=== PATIENT | female | born 1955 | race Caucasian/White ===

== ENCOUNTER 2019-07-05 19:42 | Emergency (ER) | payer SELFPAY ==
--- NOTE | 2019-07-05 21:27 | ER ---
Nurse's Notes [facility] Name: Sommer Robertson Age: 64 yrs Sex: Female : 1955 Arrival Date: 07/05/2019 Time: 19:44 Bed 25 Private MD: Diagnosis: Presentation: 07/05 19:55 Presenting complaint: Patient states: "I got home today and I ate some dinner and I aj1 started having pains in my left arm, like in my wrist and it looked swollen there. I felt really tired, I've been like that for 2 weeks or so. I don't remember hitting my wrist or anything I took my blood pressure at home and it was 190/90." Patient also reports shortness of breath. Transition of care: patient was not received from another setting of care. Onset of symptoms was 2018. Risk Assessment: Do you want to hurt yourself or someone else? Patient reports no desire to harm self or others. Initial Sepsis Screen: Does the patient meet any 2 criteria? No. Patient's initial sepsis screen is negative. Does the patient have a suspected source of infection? No. Patient's initial sepsis screen is negative. Care prior to arrival: None. 19:55 Method Of Arrival: Ambulatory aj1 19:55 Acuity: MARIAA 3 aj1 Triage Assessment: 19:59 General: Appears in no apparent distress. comfortable, Behavior is calm, cooperative, aj1 appropriate for age. Pain: Denies pain. Neuro: Level of Consciousness is awake, alert, obeys commands. Cardiovascular: Patient's skin is warm and dry. Respiratory: Airway is patent Respiratory effort is even, unlabored, Respiratory pattern is regular, symmetrical. Historical: - Allergies: 19:59 Vicodin; aj1 - Home Meds: 19:59 Lisinopril Oral [Active]; Coreg Oral [Active]; "allergy medicine" [Active]; aj1 - PMHx: 19:59 Hypertension; aj1 - PSHx: 19:59 Hysterectomy; foot surgery; aj1 - Immunization history:: Flu vaccine is up to date. - Social history:: Smoking status: Patient/guardian denies using tobacco. - Ebola Screening: : Patient denies travel to an Ebola-affected area in the 21 days before illness onset. Vital Signs: 19:59 BP 146 / 89; Pulse 70; Resp 18; Temp 98.2; Pulse Ox 98% on R/A; Weight 63.5 kg (R); aj1 Height 5 ft. 4 in. (162.56 cm) (R); Pain 0/10; 19:59 Body Mass Index 24.03 (63.50 kg, 162.56 cm) aj1 ED Course: 19:44 Patient arrived in ED. ds1 19:58 Triage completed. aj1 19:59 Arm band placed on Patient placed in waiting room, Patient notified of wait time. aj1 21:23 Andrew Godinez MD is Attending Physician. tw4 Administered Medications: No medications were administered Outcome: 21:26 Patient left the ED. aa1 Signatures: Estephanie Michaels RN RN aj1 Ivelisse Vo RN RN aa1 Yara Garcia ds1 Andrew Godinez MD MD tw4
[2019-07-06 00:55] VITALS: BP 146/89; TEMP 98.2; O2SAT 98
== END 2019-07-05 21:26 | disposition left against medical advice (07) ==
LOC: ER 19:42
DX: Z53.21 Procedure and treatment not carried out due to patient leaving prior to being seen by health care provider (principal)
CPT/HCPCS: 99281

== ENCOUNTER 2019-09-09 14:57 | Emergency (ER) | payer OTHER ==
[2019-09-09 16:58] LABS: Urine Bacteria <20 /HPF (<20); Urine Culture Reflex Order NOT NEEDED; Urine RBC <5 /HPF (NONE SEEN)
[2019-09-09 17:38] LABS: ALT/SGPT 28 U/L (12-78); AST/SGOT 26 U/L (15-37); Absolute Lymphocytes (CBC) 1.5 K/uL (0.7-4.9); Albumin 3.8 g/dL (3.4-5.0); Alkaline Phosphatase 56 U/L (45-117); Amylase Level 82 U/L (25-115); BUN Blood Urea Nitrogen 11 mg/dL (7-18); Basophils % 0.2 % (0-1.3); Bicarbonate 28 mmol/L (21-32); Bilirubin Direct 0.2 mg/dL (0-0.2); Bilirubin Total 0.7 mg/dL (0.2-1.0); CKMB Creatine Kinase MB < 1.0 ng/mL (0.3-3.6); Creatine Phosphokinase 35 U/L (26-192); Glucose Level 97 mg/dL (74-106); Hematocrit 38.8 % (36.0-45.0); Lipase 468 U/L (73-393); MPV 9.3 fL (7.6-11.3); Potassium 3.6 mmol/L (3.5-5.1); Protein, Total 7.4 g/dL (6.4-8.2); Protime INR 1.02; RBC Red Blood Cell Count 4.22 M/uL (3.86-4.86); Sodium Level 129 mmol/L (136-145); Troponin (Emerg Dept Use Only) < 0.02 ng/mL (0.0-0.045)
[2019-09-09] MEDS ORDERED: NA CHLORIDE 0.9% 1,000 ML ONE (17:52)
[2019-09-09 20:18] LABS: BUN Blood Urea Nitrogen 10 mg/dL (7-18); Bicarbonate 26 mmol/L (21-32); Glucose Level 91 mg/dL (74-106); Potassium 3.5 mmol/L (3.5-5.1); Sodium Level 137 mmol/L (136-145)
--- NOTE | 2019-09-09 20:34 | EDPHYS ---
Physician Documentation [facility] Name: Sommer Robertson Age: 64 yrs Sex: Female : 1955 Arrival Date: 09/09/2019 Time: 14:59 Bed 2 Private MD: Bob Wiggins R ED Physician Mason Israel HPI: 09/09 17:56 This 64 yrs old Female presents to ER via Ambulatory with complaints of kdr Abnormal Lab Results. 17:56 The patient was sent to the ED for low sodium and general malaise that has been ongoing kdr for the past few weeks. She has been treated for UTI and non-specific infection since mid July since she returned from a trip to [facility]. Onset: The symptoms/episode began/occurred gradually, Unknown exact onset - she has been drinking a lot of free water in the last few weeks due to her generalized malaise and UTI.. Severity of symptoms: At their worst the symptoms were very mild in the emergency department the symptoms are unchanged. The patient has not experienced similar symptoms in the past. The patient has been recently seen by a physician: the patient's primary care provider. Historical: - Allergies: 15:22 Vicodin; hb - Home Meds: 15:22 "allergy medicine" [Active]; lisinopril Oral [Active]; Coreg Oral [Active]; hb - PMHx: 15:22 Hypertension; hb - PSHx: 15:22 Hysterectomy; foot surgery; hb - Immunization history:: Adult Immunizations up to date. - Coronavirus screen:: The patient has NOT traveled to [place], [place], or [place] in the past 14 days. The patient has NOT had contact with known/suspected case of Coronavirus? Proceed with normal triage procedures. - Social history:: Smoking status: Patient denies any tobacco usage or history of. - Ebola Screening: : No symptoms or risks identified at this time. ROS: 17:56 Constitutional: Negative for fever, chills, and weight loss, Eyes: Negative for injury, kdr pain, redness, and discharge, ENT: Negative for injury, pain, and discharge, Neck: Negative for injury, pain, and swelling, Cardiovascular: Negative for chest pain, palpitations, and edema, Respiratory: Negative for shortness of breath, cough, wheezing, and pleuritic chest pain, Abdomen/GI: Negative for abdominal pain, nausea, vomiting, diarrhea, and constipation, Back: Negative for injury and pain, : Negative for injury, discharge, and swelling - she has had some hematuria but that has improved with abx MS/Extremity: Negative for injury and deformity, Skin: Negative for injury, rash, and discoloration, Neuro: Negative for headache, weakness, numbness, tingling, and seizure activity. Psych: Negative for depression, anxiety, suicide ideation, homicidal ideation, and hallucinations, Allergy/Immunology: Negative for hives, rash, and allergies, Endocrine: Negative for neck swelling, polydipsia, polyuria, polyphagia, and marked weight changes, Hematologic/Lymphatic: Negative for swollen nodes, abnormal bleeding, and unusual bruising. Exam: 17:56 Constitutional: This is a well developed, well nourished patient who is awake, alert, kdr and in no acute distress. Head/Face: Normocephalic, atraumatic. Eyes: Pupils equal round and reactive to light, extra-ocular motions intact. Lids and lashes normal. Conjunctiva and sclera are non-icteric and not injected. Cornea within normal limits. Periorbital areas with no swelling, redness, or edema. Neck: Trachea midline, no thyromegaly or masses palpated, and no cervical lymphadenopathy. Supple, full range of motion without nuchal rigidity, or vertebral point tenderness. No Meningismus. Chest/axilla: Normal chest wall appearance and motion. Nontender with no deformity. No lesions are appreciated. Cardiovascular: Regular rate and rhythm with a normal S1 and S2. No gallops, murmurs, or rubs. Normal PMI, no JVD. No pulse deficits. Respiratory: Lungs have equal breath sounds bilaterally, clear to auscultation and percussion. No rales, rhonchi or wheezes noted. No increased work of breathing, no retractions or nasal flaring. Abdomen/GI: Soft, non-tender, with normal bowel sounds. No distension or tympany. No guarding or rebound. No evidence of tenderness throughout. Back: No spinal tenderness. No costovertebral tenderness. Full range of motion. Skin: Warm, dry with normal turgor. Normal color with no rashes, no lesions, and no evidence of cellulitis. MS/ Extremity: Pulses equal, no cyanosis. Neurovascular intact. Full, normal range of motion. Neuro: Awake and alert, GCS 15, oriented to person, place, time, and situation. Cranial nerves II-XII grossly intact. Motor strength 5/5 in all extremities. Sensory grossly intact. Cerebellar exam normal. Normal gait. Psych: Awake, alert, with orientation to person, place and time. Behavior, mood, and affect are within normal limits. Vital Signs: 15:22 BP 158 / 79; Pulse 62; Resp 16; Temp 98.9(TE); Pulse Ox 100% on R/A; Weight 63.5 kg; hb Height 5 ft. 4 in. (162.56 cm); Pain 0/10; 16:45 BP 188 / 91; Pulse 74; Resp 17 S; Pulse Ox 100% on R/A; jl7 17:12 BP 176 / 86; Pulse 72; Resp 16 S; Pulse Ox 99% on R/A; jl7 18:17 BP 166 / 92; Pulse 73; Resp 14 S; Pulse Ox 100% on R/A; jl7 19:44 BP 157 / 78; Pulse 70; Resp 14; Pulse Ox 100% on R/A; rv 20:45 BP 132 / 75; Pulse 63; Resp 11; Pulse Ox 98% on R/A; vc 15:22 Body Mass Index 24.03 (63.50 kg, 162.56 cm) hb MDM: 20:32 Data reviewed: vital signs. Data interpreted: Pulse oximetry: on room air is 100 %. pm1 Interpretation: normal. Counseling: I had a detailed discussion with the patient and/or guardian regarding: the historical points, exam findings, and any diagnostic results supporting the discharge/admit diagnosis, lab results, the need for outpatient follow up, to return to the emergency department if symptoms worsen or persist or if there are any questions or concerns that arise at home. 20:33 Patient medically screened. pm1 09/09 16:19 Order name: Amylase, Serum; Complete Time: 17:46 [facility] 09/09 16:19 Order name: Basic Metabolic Panel; Complete Time: 17:45 [facility] 09/09 16:19 Order name: Blood Culture Adult (2) [facility] 09/09 16:19 Order name: CBC with Diff; Complete Time: 17:46 [facility] 09/09 16:19 Order name: Ckmb; Complete Time: 17:46 [facility] 09/09 16:19 Order name: CPK; Complete Time: 17:46 [facility] 09/09 16:19 Order name: Lactate; Complete Time: 17:46 [facility] 09/09 16:19 Order name: LFT's; Complete Time: 17:45 [facility] 09/09 16:19 Order name: Lipase; Complete Time: 17:45 [facility] 09/09 16:19 Order name: Procalcitonin; Complete Time: 18:28 [facility] 09/09 16:19 Order name: Protime (+inr); Complete Time: 17:46 [facility] 09/09 16:19 Order name: Ptt, Activated; Complete Time: 17:46 [facility] 09/09 16:19 Order name: Troponin (emerg Dept Use Only); Complete Time: 17: [facility] 09/09 16:19 Order name: Urine Microscopic Only; Complete Time: 17:46 [facility] 09/09 16:19 Order name: Accucheck; Complete Time: 16:42 [facility] 09/09 16:19 Order name: Cardiac monitoring; Complete Time: 16:42 [facility] 09/09 16:19 Order name: EKG - Nurse/Tech; Complete Time: 17:09 [facility] 09/09 16:19 Order name: IV Saline Lock - Large Bore; Complete Time: 17:09 [facility] 09/09 16:19 Order name: Labs collected and sent; Complete Time: 17: [facility] 09/09 16:19 Order name: O2 Per Protocol; Complete Time: 16:36 [facility] 09/09 16:19 Order name: O2 Sat Monitoring; Complete Time: 16:36 [facility] 09/09 16:19 Order name: Urine Dipstick-Ancillary (obtain specimen); Complete Time: 16:36 [facility] 09/09 16:54 Order name: Urine Dipstick--Ancillary (enter results) ss 09/09 17:16 Order name: Glucose, Ancillary Testing; Complete Time: 17:46 EDMS 09/09 17:47 Order name: Chem 7: draw 30 minutes after bolus; Complete Time: 20:21 kdr EC:10 Rate is 69 beats/min. Rhythm is regular, Normal Sinus Rhythm with No ectopy. QRS [place] kdr is Normal. [place] interval is normal. QRS interval is normal. QT interval is normal. Clinical impression: Normal ECG. Administered Medications: 17:55 Drug: NS 0.9% 1000 ml Route: IV; Rate: 1 bolus; Site: left forearm; jl7 18:54 Follow up: IV Status: Completed infusion; IV Intake: 1000ml jl7 Disposition: 09/09/19 20:33 Discharged to Home. Impression: Hyponatremia. - Condition is Stable. - Discharge Instructions: Hyponatremia. - Medication Reconciliation Form, Thank You Letter, Antibiotic Education, Prescription Opioid Use form. - Follow up: Emergency Department; When: As needed; Reason: Worsening of condition. Follow up: Private Physician; When: 2 - 3 days; Reason: Recheck today's complaints, Continuance of care, Re-evaluation by your physician. - Problem is new. - Symptoms have improved. Addendum: 09/10/2019 21:16 Co-signature as Attending Physician, Mason Israel MD I agree with the assessment and k dr plan of care. Signatures: Dispatcher [employer] [facility] Mason Israel MD MD [facility] Juan Goins, MACHINE REPAIRER MAINTENANCE MACHINE REPAIRER MAINTENANCE pm1 Stephanie Franklin RN RN Bashir España RN RN jl7 Nesha Diaz RN RN vc Corrections: (The following items were deleted from the chart) 09/09 16:50 16:20 Chest Single View+RAD.RAD.BRZ ordered. [facility] 20:44 20:33 09/09/2019 20:33 Discharged to Home. Impression: Hyponatremia. Condition is vc Stable. Forms are Medication Reconciliation Form, Thank You Letter, Antibiotic Education, Prescription Opioid Use. Follow up: Emergency Department; When: As needed; Reason: Worsening of condition. Follow up: Private Physician; When: 2 - 3 days; Reason: Recheck today's complaints, Continuance of care, Re-evaluation by your physician. Problem is new. Symptoms have improved. pm1
--- NOTE | 2019-09-09 20:34 | ER ---
Nurse's Notes [facility] Name: Sommer Robertson Age: 64 yrs Sex: Female : 1955 Arrival Date: 09/09/2019 Time: 14:59 Bed 2 Private MD: Bob Wiggins R Diagnosis: Hyponatremia Presentation: 09/09 15:20 Presenting complaint: Lethargy and intermittent fever x 2-3 weeks. Completed ABX for hb UTI 3 days ago. Had outpatient labs done yesterday, instructed by PCP to come to ED for CL 91, NA 130. Transition of care: patient was not received from another setting of care. Onset of symptoms was August 2019. Risk Assessment: Do you want to hurt yourself or someone else? Patient reports no desire to harm self or others. Initial Sepsis Screen: Does the patient meet any 2 criteria? No. Patient's initial sepsis screen is negative. Does the patient have a suspected source of infection? No. Patient's initial sepsis screen is negative. Care prior to arrival: Medication(s) given: DayQuil 2 hrs PHYSICAL THERAPIST AIDE. 15:20 Method Of Arrival: Ambulatory hb 15:20 Acuity: MARIAA 3 hb Historical: - Allergies: 15:22 Vicodin; hb - Home Meds: 15:22 "allergy medicine" [Active]; lisinopril Oral [Active]; Coreg Oral [Active]; hb - PMHx: 15:22 Hypertension; hb - PSHx: 15:22 Hysterectomy; foot surgery; hb - Immunization history:: Adult Immunizations up to date. - Coronavirus screen:: The patient has NOT traveled to [place], [place], or [place] in the past 14 days. The patient has NOT had contact with known/suspected case of Coronavirus? Proceed with normal triage procedures. - Social history:: Smoking status: Patient denies any tobacco usage or history of. - Ebola Screening: : No symptoms or risks identified at this time. Screenin:11 Abuse screen: Denies threats or abuse. Denies injuries from another. Nutritional jl7 screening: No deficits noted. Tuberculosis screening: No symptoms or risk factors identified. Fall Risk IV access (20 points). Total Brantley Fall Scale indicates No Risk (0-24 pts). Assessment: 16:30 General: Appears in no apparent distress. uncomfortable, Behavior is calm, cooperative, jl7 appropriate for age. Pain: Denies pain. Neuro: Level of Consciousness is awake, alert, obeys commands, Oriented to person, place, time, situation. Cardiovascular: Patient's skin is warm and dry. Respiratory: Airway is patent Respiratory effort is even, unlabored, Respiratory pattern is regular, symmetrical. GI: Stools are reported to be loose. : Reports being treated for UTI. Derm: Skin is pink, warm \\T\\ dry. 17:30 Reassessment: Patient appears in no apparent distress at this time. No changes from jl7 previously documented assessment. Patient and/or family updated on plan of care and expected duration. Pain level reassessed. Patient is alert, oriented x 3, equal unlabored respirations, skin warm/dry/pink. 19:15 General: Appears in no apparent distress. uncomfortable, Behavior is calm, cooperative, vc appropriate for age, drowsy. Pain: Denies pain. Neuro: Level of Consciousness is awake, alert, obeys commands, Oriented to person, place, time, situation. Cardiovascular: Patient's skin is warm and dry. Respiratory: Airway is patent Respiratory effort is even, unlabored, Respiratory pattern is regular, symmetrical. GI: Stools are reported to be loose. :. EENT: No signs and/or symptoms were reported regarding the EENT system. Derm: Skin is pink, warm \\T\\ dry. Musculoskeletal: Circulation, motion, and sensation intact. Range of motion: intact in all extremities. 19:45 Reassessment: Patient appears in no apparent distress at this time. Patient is alert, rv oriented x 3, equal unlabored respirations, skin warm/dry/pink. CONDITION IS UNCHANGED PER PATIENT. Vital Signs: 15:22 BP 158 / 79; Pulse 62; Resp 16; Temp 98.9(TE); Pulse Ox 100% on R/A; Weight 63.5 kg; hb Height 5 ft. 4 in. (162.56 cm); Pain 0/10; 16:45 BP 188 / 91; Pulse 74; Resp 17 S; Pulse Ox 100% on R/A; jl7 17:12 BP 176 / 86; Pulse 72; Resp 16 S; Pulse Ox 99% on R/A; jl7 18:17 BP 166 / 92; Pulse 73; Resp 14 S; Pulse Ox 100% on R/A; jl7 19:44 BP 157 / 78; Pulse 70; Resp 14; Pulse Ox 100% on R/A; rv 20:45 BP 132 / 75; Pulse 63; Resp 11; Pulse Ox 98% on R/A; vc 15:22 Body Mass Index 24.03 (63.50 kg, 162.56 cm) hb ED Course: 14:59 Patient arrived in ED. ag5 14:59 Bob Wiggins MD is Private Physician. ag5 15:01 Mason Israel MD is Attending Physician. kdr 15:22 Triage completed. hb 15:22 Arm band placed on. hb 15:46 Bashir España, BLAKE is Primary Nurse. jl7 16:30 Patient has correct armband on for positive identification. Placed in gown. Bed in low jl7 position. Call light in reach. Side rails up X2. nurse monitoring on. Pulse ox on. NIBP on. Warm blanket given. 16:43 Urine collected: clean catch specimen, clear, ryne colored. jb1 17:00 Inserted saline lock: 22 gauge in left forearm, using aseptic technique. Blood jl7 collected. 17:00 Initial lab(s) drawn, by me, sent to lab. First set of blood cultures drawn by me. jl7 18:15 Second set of blood cultures drawn Missed attempt to draw second set of blood cultures jl7 from right hand, pt refused second set of blood cultures at this time, lab notified. 19:43 Juan Goins NP is PHCP. pm1 20:42 No provider procedures requiring assistance completed. IV discontinued, intact, vc bleeding controlled, No redness/swelling at site. Pressure dressing applied. Administered Medications: 17:55 Drug: NS 0.9% 1000 ml Route: IV; Rate: 1 bolus; Site: left forearm; jl7 18:54 Follow up: IV Status: Completed infusion; IV Intake: 1000ml jl7 Intake: 18:54 IV: 1000ml; Total: 1000ml. jl7 Outcome: 20:33 Discharge ordered by . pm1 20:44 Patient left the ED. vc 20:46 Discharged to home ambulatory, with significant other. vc 20:46 Condition: good 20:46 Discharge instructions given to patient, Instructed on discharge instructions, follow up and referral plans. Demonstrated understanding of instructions, follow-up care. Signatures: Lyle Rodriguez jb1 Mason Israel MD MD kdr Juan Goins, KENNEDI ACQUISITIONS ANALYST pm1 Stephanie Franklin, RN RN hb Bashir España RN RN jl7 Al Meza RN RN Jitendra Dumont ag5 Nesha Diaz RN RN vc
[2019-09-09 20:50] VITALS: TEMP 98.9
[2019-09-09 20:54] VITALS: O2SAT 100
[2019-09-09 20:56] VITALS: BP 157/78
[2019-09-09 22:08] LABS: Urine Blood 1+ (NEG); Urine Glucose NEGATIVE (NEG); Urine Protein NEGATIVE (NEG)
--- NOTE | 2019-09-10 12:00 | EKG ---
Test Date: 2019-09-09 Test Time: 17:09:49 Daycare Manager: GENNY MEASUREMENT RESULTS: Intervals: Rate: 69 HI: 156 QRSD: 96 QT: 400 QTc: 428 [place]: P: 76 HI: 156 QRS: 48 T: 58 INTERPRETIVE STATEMENTS: Normal sinus rhythm Normal ECG Compared to ECG 02/11/2011 14:25:47 No significant changes Electronically Signed On 09-10-19 11:59:38 EDITING INTERN by Filemon Gonzales
== END 2019-09-09 20:44 | disposition home or self-care (01) ==
LOC: ER 14:57
DX: E87.1 Hypo-osmolality and hyponatremia (principal); I10 Essential (primary) hypertension; Z88.6 Allergy status to analgesic agent
CPT/HCPCS: 93005; 87040; 85025; 80048 ×2; 36415; 82150; 82550; 85610; 82947; 80076; 83605; 85730; 84484; 82553; 83690; 84145; 96360; 99284; J7030; 81003; 81015

== ENCOUNTER 2020-09-02 20:17 | Observation (INO) | payer OTHER ==
--- OUTSIDE RECORDS SUMMARY | 2020-09-02 20:20 | XMS REPORT | Summary of Care ---
:1955 Author Organization [facility] Address [address] [place] [id number] Care Team Providers Name Role Phone Juana Wiggins MD Primary Care Provider [phone] Reason for Visit Reason Comments Rx Concern/Question Encounter Details Date Type Department Care Team Description 07/22/2020 Telephone [facility] Callum Palomares, Rx Con cern/Question Neurology-Christopher HESTER [address] [place] [address]. [address] [place] [address] [id number] Allergies No Known Allergiesdocumented as of this encounter (statuses as of 07/30/2020) Medications Medication Sig Dispensed Refills Start Date End Date Status albuterol 90 0 09/03/2019 Active mcg/actuation inhaler amLODIPine 5 mg tablet 0 09/06/2019 Active azithromycin 250 mg 0 08/21/2019 Active tablet carvediloL 25 mg tablet 0 09/01/2019 Active cefdinir 300 mg capsule 0 09/01/2019 Active lisinopril 40 mg tablet 0 09/06/2019 Active montelukast 10 mg 0 09/01/2019 A ctive tablet atorvastatin 40 mg TAKE 1 TABLET BY 0 05/31/2020 Active tablet MOUTH EVERY DAY AT NIGHT documented as of this encounter (statuses as of 07/30/2020) Active Problems Not on filedocumented as of this encounter (statuses as of 07/30/2020) Social History Tobacco Use Types Packs/Day Years Used Date Never Assessed Sex Assigned at Date Recorded Not on file COVID-19 Exposure Response Date Recorded In the last month, have you been in contact with No / Unsure 07/19/2020 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 documented as of this encounter Last Filed Vital Signs Not on filedocumented in this encounter Miscellaneous Notes Telephone Encounter - Callum Palomares MD - 07/30/2020 9:16 AM CSTThe medication that we had talked about was rivastigmine. I thought that it had already been ordered. It is a 4.6 mg transdermal dosage. elephone Encounter - Jennifer Orozco LVN - 07/23/2020 9:12 AM CSTDr. Larry, Patient's called and wanted to check the status of the medication being called in that was discussed at last office visit. Please review and advise. MILL OPERATOR Telephone Encounter - Jennifer Orozco LVN - 07/23/2020 9:09 AM CSTAttempted to contact patient. Left VM with direct clinic number. Left message I was sending message to doctor and would let them know when I hear back from doctor. MILL OPERATOR Telephone Encounter - Ariane Renteria - 07/22/2020 3:43 PM CSTDoris Robertson is a 65 year old female Lyle is calling to check status of a prescription that was supposed to be called in as discussed during last office visit on 07/19. States the rx was not called in and would like a call back at [phone] (home) to be advised. Thank you! MILL OPERATOR documented in this encounter Plan of Treatment Date Type Specialty Care Team Description 10/18/2020 Office Visit Neurology Callum Palomares MD [address] [place], [place] [address]d. [place] [phone] Health Maintenance Due Date Last Done Comments HEPATITIS C (HCV) SCREEN 1955 DTaP,Tdap,and Td Vaccines (1 - 02/13/1975 Tdap) PAP SMEAR 02/13/1977 Breast Cancer Screening 1996 (MAMMOGRAM) COLON CANCER SCREENING ANNUAL 02/13/2006 FIT/FOBT COLON CANCER SCREENING FIT DNA 02/13/2006 EVERY 3 YEARS COLON CANCER SCREENING 02/13/2006 SIGMOIDOSCOPY EVERY 5 YEARS COLONOSCOPY 02/13/2006 Colorectal Cancer Screening 02/13/2006 Zoster Recombinant Vaccine 02/13/2006 (SHINGRIX) (1 of 2) INFLUENZA VACCINE (#1) 2020 Depression Screening 07/19/2021 07/19/2020 PNEUMOCOCCAL 0-64 YEARS COMBINED Aged Out No longer eligible based on SERIES patient's age to complete this topic documented as of this encounter Results Not on filedocumented in this encounter Insurance Payer Benefit Plan / Group Subscriber ID Effective Dates Phone Address Type AETNA AETNA HMO [id number] 2019-Present HM O documented as of this encounter
--- OUTSIDE RECORDS SUMMARY | 2020-09-02 20:20 | XMS REPORT | Summary of Care ---
:1955 Author Organization [address] [address] Care Team Providers Name Role Phone Juana Wiggins MD Primary Care Provider [phone] Reason for Visit Reason Comments Refill Request Encounter Details Date Type Department Care Team Description 08/17/2020 Refill [facility] Callum Palomares MD Refill Request Neurology-[address] [place] [address] [address] [place] [address] [facility] [phone] Allergies No Known Allergiesdocumented as of this encounter (statuses as of 08/19/2020) Medications Medication Sig Dispensed Refills Start Date [...] Active tablet MOUTH EVERY DAY AT NIGHT rivastigmine 4.6 mg/24 Apply 1 Patch to 30 Patch 1 07/24/2020 Active hr patchIndications: skin daily. 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 documented as of this encounter Last Filed Vital Signs Not on filedocumented in this encounter Plan of Treatment Date Type Specialty Care Team Description 10/18/2020 Office Visit Neurology Callum Palomares MD [address] [place], [place] [address]d. [place] [phone] Health Maintenance Due Date Last Done Comments HEPATITIS C (HCV) SCREEN 1955 DTaP,Tdap,and Td Vaccines ( - 02/13/1975 Tdap) PAP SMEAR 02/13/1977 Breast [...] Results Not on filedocumented in this encounter Visit Diagnoses Diagnosis Early onset Alzheimer's dementia without behavioral disturbance documented in this encounter Insurance Payer Benefit Plan / Group Subscriber ID Effective Dates Phone Address Type AETNA AETNA HMO [id number] 2019-Present HM O documented as of this encounter
--- OUTSIDE RECORDS SUMMARY | 2020-09-02 20:20 | XMS REPORT | Summary of Care ---
:1955 Author Organization [facility] Address [address] [place] [address] Care Team Providers Name Role Phone Juana Wiggins MD Primary Care Provider [phone] Reason for Visit Reason Comments Follow-up for MRI results, cognitive i mpairement Encounter Details Date Type Department Care Team Description 07/19/2020 Office Visit [facility] Callum Palomares Early onset Neurology-Christopher Daniel MD Alzheimer's dementia [address] [place] [address] [place], [place] disturbance ([place] [address] Dx) [phone] Allergies No Known Allergiesdocumented as of this encounter (statuses as of 07/26/2020) Medications Medication Sig Dispensed Refills Start Date [...] as of this encounter (statuses as of 07/26/2020) Active Problems Not on filedocumented as of this encounter (statuses as of 07/26/2020) Social History Tobacco Use Types Packs/Day Years Used Date Never Assessed Sex Assigned at Date Recorded Not on file COVID-19 Exposure Response Date Recorded In the last month, have you been in contact with No / Unsure 07/19/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 documented as of this encounter Last Filed Vital Signs Vital Sign Reading Time Taken Comments Blood Pressure 122/71 07/19/2020 3:24 PM COCONUT CANDY MAKER Pulse 67 07/19/2020 3:24 PM COCONUT CANDY MAKER Temperature - - Respiratory Rate - - Oxygen Saturation - - Inhaled Oxygen Concentration - - Weight 61.1 kg (134 lb 12.8 oz) 07/19/2020 3:24 PM COCONUT CANDY MAKER Height 162.6 cm (5' 4") 07/19/2020 3:24 PM COCONUT CANDY MAKER Body Mass Index 23.14 07/19/2020 3:24 PM COCONUT CANDY MAKER documented in this encounter Progress Notes Callum Palomares MD - 07/19/2020 3:00 PM CST HISTORY OF PRESENT ILLNESS: Doris Robertson is a 65 year old female. Chief complaint: Suspected AD followup. History: The patient did have the MRI done from back in December. I had previously seen her in September. She is here today with her , and cognitively she has not worsened, but unfortunately she also has not gotten any better. The study did reveal in my opinion some fairly significant atrophy presentfor someone who is only 65 years old. There was no evidence of hydrocephalus. Discussion did occur about what possible symptomatic treatment options might be available. When she had the MOCA back in September, there was significant changes in the score. PMH: has no past medical history on file. Current Outpatient Medications: rivastigmine 4.6 mg/24 hr patch, Apply 1 Patch to skin daily., Disp: 30 Patch, Rfl: 1 atorvastatin 40 mg tablet, TAKE 1 TABLET BY MOUTH EVERY DAY AT NIGHT, Disp: , Rfl: albuterol 90 mcg/actuation inhaler, , Disp: , Rfl: amLODIPine 5 mg tablet, , Disp: , Rfl: carvediloL 25 mg tablet, , Disp: , Rfl: cefdinir 300 mg capsule, , Disp: , Rfl: lisinopril 40 mg tablet, , Disp: , Rfl: montelukast 10 mg tablet, , Disp: , Rfl: azithromycin 250 mg tablet, , Disp: , Rfl: No family history on file. Social History Socioeconomic History Marital status: Spouse name: Not on file Number of children: Not on file Years of education: Not on file Highest education level: Not on file Occupational History Not on file Social Needs Financial resource strain: Not on file Food insecurity Worry: Not on file Inability: Not on file Transportation needs Medical: Not on file Non-medical: Not on file Tobacco Use Smoking status: Not on file Substance and Sexual Activity Alcohol use: Not on file Drug use: Not on file Sexual activity: Not on file Lifestyle Physical activity Days per week: Not on file Minutes per session: Not on file Stress: Not on file Relationships Social connections Talks on phone: Not on file Gets together: Not on file Attends shinto service: Not on file Active member of club or organization: Not on file Attends meetings of clubs or organizations: Not on file Relationship status: Not on file Intimate partner violence Fear of current or ex partner: Not on file Emotionally abused: Not on file Physically abused: Not on file Forced sexual activity: Not on file Other Topics Concern Not on file Social History Narrative Not on file Vital signs: BP 122/71 (BP Location: Left arm, Patient Position: Sitting, BP CUFF SIZE: Adult Medium) | Pulse 67 | Ht 5' 4" (1.626 m) | Wt 134 lb 12.8 oz (61.1 kg) | BMI 23.14 kg/m General findings: EOMI/VFFTC/PERRL, no facial asymmetry, no new focal weakness of arms, UE tone unchanged, no new focal weakness of legs, LE tone unchanged, no tremors. Patient was cooperative during the exam, not completely oriented to time but did realized that she was in the MD office. Language function intact. Able to walk unaided without any problems. ASSESSMENT AND RECOMMENDATIONS: ICD-10-CM ICD-9-CM 1. Early onset Alzheimer's dementia without behavioral disturbance G30.0 331.0 F02.80 294.10 Impression: I am recommending that the patient try rivastigmine and so the discussion of the medications benefits as well as risks was given to the patient and also discussion did occur about the fact that this medicine is also not a disease modifying treatment. I really suspect that the patient actually does have Alzheimer's disease and not just mild cognitive dysfunction. The was wondering when we might do another MOCA and I told him that maybe we could do that after she had been on the rivastigmine for a few months. In addition, during the 25 minute visit, 13 of the minutes had been spent discussing the medication use for Alzheimer's as well as basic activities of daily living things that the patient might do to help herself, some of this is already been accomplished, I had recommendedworking with word puzzles, getting regular sleep, moderate exercise 3 or 4 times per week like walking briskly. Limiting alcohol consumption is also important although the patient really doesn't drink much. Getting regular sleep is important. Additionally, I recommended that the patient stop Prevagen.There is no proven benefit to this compound. Creation of the note was aided by utilizing a cut/paste operation of text from a Microsoft Word template created with [employer]. The text was dictated into the template via Dragon Naturally Speaking. 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 [place] [phone] Health Maintenance Due Date Last Done [...] Early onset Alzheimer's dementia without behavioral disturbance - Primary documented in this encounter documented as of this encounter
--- OUTSIDE RECORDS SUMMARY | 2020-09-02 20:20 | XMS REPORT | Summary of Care ---
:1955 Author Organization [facility] Address [address] [place] [address] Care Team Providers Name Role Phone Juana Wiggins MD Primary Care Provider [phone] Reason for Visit Reason Comments Follow-up for MRI results, cognitive i mpairement Encounter Details Date Type Department Care Team Description 07/19/2020 Office Visit [facility] Callum Palomares Early onset Neurology-Christopher Daniel MD Alzheimer's dementia [address] [place] 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 documented as of this encounter Last Filed Vital Signs Vital Sign Reading Time Taken Comments Blood Pressure 122/71 07/19/2020 3:24 PM FIRST HELPER Pulse 67 07/19/2020 3:24 PM FIRST HELPER Temperature - - Respiratory Rate - - Oxygen Saturation - - Inhaled Oxygen Concentration - - Weight 61.1 kg (134 lb 12.8 oz) 07/19/2020 3:24 PM FIRST HELPER Height 162.6 cm (5' 4") 07/19/2020 3:24 PM FIRST HELPER Body Mass Index 23.14 07/19/2020 3:24 PM FIRST HELPER documented in this encounter Progress Notes Callum Palomarse MD - 07/19/2020 3:00 PM CST HISTORY [...] file Gets together: Not on file Attends rastafarian service: Not on file Active member of [...] from a Microsoft Word template created with [employer]. The text was dictated into the template via Dragon Naturally Speaking. T HELPER documented in this encounter Plan of Treatment Date Type Specialty Care Team Description 10/18/2020 Office Visit Neurology Callum Palomares MD [address] [place] [address]. [place] [phone] Health Maintenance Due Date Last Done [...]
--- OUTSIDE RECORDS SUMMARY | 2020-09-02 20:20 | XMS REPORT | Summary of Care ---
:1955 Author Organization [facility] Address [address] [place] [address] Care Team Providers Name Role Phone Juana Wiggins MD Primary Care Provider [phone] Reason for Visit Reason Comments Rx Concern/Question Refill Request Encounter Details Date Type Department Care Team Description 08/27/2020 Telephone [facility] Callum Palomares, Rx Con cern/Question; Neurology-Christopher HESTER Refill Request [address] [place] [address], [address] [place] [phone] Allergies No Known Allergiesdocumented as of this encounter (statuses as of 08/28/2020) Medications Medication Sig Dispensed Refills Start Date [...] mg/24 Apply 1 Patch to 30 Patch 2 08/27/2020 Active hr patchIndications: skin daily. Early onset Alzheimer's dementia without behavioral disturbance documented as of this encounter (statuses as of 08/28/2020) Active Problems Not on filedocumented as of this encounter (statuses as of 08/28/2020) Social History Tobacco Use Types Packs/Day Years Used Date Never Assessed Sex Assigned at Date Recorded Not on file documented as of this encounter Last Filed Vital Signs Not on filedocumented in this encounter Miscellaneous Notes Telephone Encounter - Raquel Viera LVN - 08/28/2020 9:54 AM CSTNurse spoke with spouse. He is stating that MD mentioned increasing patch to 9mg. Nurse will verify, if so, a new order will be sent to pharmacy. elephone Encounter - Danyell Cooper - 08/27/2020 4:28 PM CSTDoris Robertson is a 65 year old female has questions about medication for Raquel. Please advise. documented in this encounter Plan of Treatment Date Type Specialty Care Team Description 10/18/2020 Office Visit Neurology Callum Palomares MD [address] [place], [place] [address]. [place] [phone] Health Maintenance Due Date Last Done [...] Dates Phone Address Type AETNA AETNA HMO [id number] 2019-Present O documented as of this encounter
--- OUTSIDE RECORDS SUMMARY | 2020-09-02 20:20 | XMS REPORT | Summary of Care ---
:1955 Author Organization [facility] Address [address] [place] [address] Care Team Providers Name Role Phone Juana Wiggins MD Primary Care Provider [phone] Reason for Visit Reason Comments Refill Request Encounter Details Date Type Department Care Team Description 08/23/2020 Telephone [facility] Callum Palomares MD Refill Request Neurology-[address] [place] [phone] [address] [place] [address] [facility] [phone] Allergies No Known Allergiesdocumented as of this encounter (statuses as of 08/26/2020) Medications Medication Sig Dispensed Refills Start Date [...] as of this encounter (statuses as of 08/26/2020) Active Problems Not on filedocumented as of this encounter (statuses as of 08/26/2020) Social History Tobacco Use Types Packs/Day Years Used Date Never Assessed Sex Assigned at Date Recorded Not on file documented as of this encounter Last Filed Vital Signs Not on filedocumented in this encounter Miscellaneous Notes Telephone Encounter - Jennifer Alvarenga - 08/23/2020 12:05 PM CST Doris Robertson is a 65 year old female Patient's , Lyle is calling for a refill on RIVASTIGMINE 9 mg/24 hr patch [facility] [place] [address] [phone] (Phone) Please advice documented in this encounter Plan of Treatment Date Type Specialty Care Team Description 10/18/2020 Office Visit Neurology Callum Palomares MD [address] [place] [address]. [place] [phone] Health Maintenance Due Date Last Done [...] Dates Phone Address Type AETNA AETNA HMO [id number] 2019-Present HM O documented as of this encounter
--- OUTSIDE RECORDS SUMMARY | 2020-09-02 20:20 | XMS REPORT | Continuity of Care Document ---
:1955 Author Organization [facility] t Address [address] [place] [address] [address] [place] [address] Care Team Providers Name Role Phone Fredy Palomares MD Attending Clinician Problems This patient has no known problems. Allergies, Adverse Reactions, Alerts This patient has no known allergies or adverse reactions. Medications This patient has no known medications. Procedures This patient has no known procedures. Encounters Start End Encounter Admission Attending Care Care Encounter Source Date/Time Date/Time Type Type Clinicians Facility Department ID 2020-08-27 2020-08-27 Telephone [facility] Palomares [id number] 00:00:00 00:00:00 Callum White [id number] [place] [id number] [facility] [phone] [address] 2020-08-23 2020-08-23 Telephone MANPREET Palomares [id number] 00:00:00 00:00:00 Callum White [id number] [place] [id number] [facility] [phone] [address] 2020-08-17 2020-08-17 Refill Jelani [facility] [id number] 00:00:00 00:00:00 Callum White [id number] [place] [id number] [facility] [phone] [address] 2020-07-22 2020-07-22 Telephone Jelani [facility] [id number] 00:00:00 00:00:00 Callum White [id number] [place] [id number] [facility] [phone] [address] 2020-07-19 2020-07-19 [facility] Jelani [facility] [id number] 15:01:06 15:57:20 Visit Callum White [id number] [place] [id number] [facility] [phone] [address] Results This patient has no known results.
[2020-09-02 20:44] LABS: Absolute Lymphocytes (CBC) 1.8 K/uL (0.7-4.9); Basophils % 0.4 % (0-1.3); Hematocrit 39.6 % (36.0-45.0); Lymphocytes % 29.7 % (15.3-44.8); RBC Red Blood Cell Count 4.25 M/uL (3.86-4.86)
[2020-09-02] MEDS ORDERED: METOPROLOL TARTRATE 5 MG/5 ML INJ IV ONE (20:48)
[2020-09-02] MEDS ORDERED: NA CHLORIDE 0.9% 1,000 ML ONE (20:48)
[2020-09-02 21:02] LABS: ALT/SGPT 51 U/L (12-78); AST/SGOT 40 U/L (15-37); Albumin 4.1 g/dL (3.4-5.0); Alkaline Phosphatase 89 U/L (45-117); BUN Blood Urea Nitrogen 21 mg/dL (7-18); Bicarbonate 30 mmol/L (21-32); Bilirubin Direct 0.1 mg/dL (0-0.2); Bilirubin Total 0.4 mg/dL (0.2-1.0); Glucose Level 106 mg/dL (74-106); Magnesium 2.5 mg/dL (1.8-2.4); NT PRO-BNP 160 pg/mL (<125); Potassium 3.4 mmol/L (3.5-5.1); Protein, Total 8.1 g/dL (6.4-8.2); Sodium Level 137 mmol/L (136-145); Troponin (Emerg Dept Use Only) < 0.02 ng/mL (0.0-0.045)
--- NOTE | 2020-09-02 21:07 | RAD REPORT ---
EXAM DESCRIPTION: Millie Single View09/02/2020 8:49 pm CLINICAL HISTORY: Chest pain COMPARISON: August 2019 FINDINGS: The lungs appear clear of acute infiltrate. The heart is normal size IMPRESSION: No acute abnormalities displayed
[2020-09-02 21:20] LABS: Protime INR 0.98
[2020-09-02] MEDS ORDERED: DIGOXIN 0.25 MG/ML AMP ONE (21:52)
[2020-09-02] MEDS ORDERED: KCL 20 MEQ/100 mL IVPB 20 MEQ/100 ML BAG IV ONE (21:52)
--- NOTE | 2020-09-02 22:32 | ER ---
Nurse's Notes 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 Pulse rate at 133. ca1 Denies SOB and difficulty breathing. 20:20 Method Of Arrival: Wheelchair ca1 20:39 Coronavirus screen: Client denies travel out of the [place] in the last 14 days. At this ca1 time, the client does not indicate any symptoms associated with coronavirus-19. Ebola Screen: Patient negative for fever greater than or equal to 101.5 degrees Fahrenheit, and additional compatible Ebola Virus Disease symptoms Patient denies exposure to infectious person. Patient denies travel to an Ebola-affected area in the 21 days before illness onset. No symptoms or risks identified at this time. Initial Sepsis Screen: Does the patient meet any 2 criteria? No. Patient's initial sepsis screen is negative. Does the patient have a suspected source of infection? No. Patient's initial sepsis screen is negative. Risk Assessment: Do you want to hurt yourself or someone else? Patient reports no desire to harm self or others. Onset of symptoms was September 02, 2020 at 20:41. Historical: - Allergies: 20:42 Vicodin; sg 20:42 Vicodin; ca1 - Home Meds: 20:42 Coreg Oral [Active]; ca1 - PMHx: 20:42 Hypertension; sg 20:42 Hypertension; ca1 - PSHx: 20:42 foot surgery; Hysterectomy; sg 20:42 Hysterectomy; foot surgery; ca1 - Immunization history:: Adult Immunizations up to date, Adult Immunizations up to date, Pneumococcal vaccine is up to date, Flu vaccine is up to date. - Social history:: Smoking status: Patient denies any tobacco usage or history of. Patient/guardian denies using alcohol, street drugs, The patient lives with family, Smoking status: Patient denies any tobacco usage or history of. - Family history:: not pertinent. Screenin:30 Abuse screen: Denies threats or abuse. Denies injuries from another. Nutritional sg screening: No deficits noted. Tuberculosis screening: No symptoms or risk factors identified. Never had TB. Fall Risk None identified. Assessment: 20:30 General: Appears in no apparent distress. well groomed, well developed, well nourished, sg Behavior is calm, cooperative, appropriate for age. Pain: Complains of pain in chest Pain does not radiate. Quality of pain is described as aching, Pain began 1 day ago. Is. Neuro: Level of Consciousness is awake, alert, obeys commands, Oriented to person, place, time, situation, Voice Pathologist are equal bilaterally Facial symmetry appears normal. Cardiovascular: Capillary refill is brisk in bilateral fingers Patient's skin is warm and dry. Chest pain is denied. Respiratory: Airway is patent Respiratory effort is even, unlabored, Respiratory pattern is regular, symmetrical. GI: No signs and/or symptoms were reported involving the gastrointestinal system. : No signs and/or symptoms were reported regarding the genitourinary system. EENT: No signs and/or symptoms were reported regarding the EENT system. Derm: Skin is pink, warm \T\ dry. Musculoskeletal: Circulation, motion, and sensation intact. Range of motion: intact in all extremities, Swelling absent. 21:22 Reassessment: Patient appears in no apparent distress at this time. Patient and/or sg family updated on plan of care and expected duration. Pain level reassessed. Patient is alert, oriented x 3, equal unlabored respirations, skin warm/dry/pink. 21:30 Reassessment: Patient appears in no apparent distress at this time. attempt to call pt sg at this time per pt request [phone], left a VMAIL with pt , awaiting a call back at this time. 22:00 Reassessment: Patient appears in no apparent distress at this time. Patient and/or sg family updated on plan of care and expected duration. Pain level reassessed. Patient is alert, oriented x 3, equal unlabored respirations, skin warm/dry/pink. at bedside re assessing pt at this time, new orders received and carried out. 22:28 Reassessment: Patient appears in no apparent distress at this time. Patient and/or sg family updated on plan of care and expected duration. Pain level reassessed. Vincenzo RUANO at bedside discussing admission with pt and pt . Vital Signs: 20:20 BP 133 / 89; Pulse 140; Resp 16 S; Temp 97.8(TE); Pulse Ox 100% on R/A; Weight 61.69 kg ca1 (R); Height 5 ft. 4 in. (162.56 cm) (R); Pain 2/10; 21:00 BP 122 / 92; Pulse 123; Resp 18; Pulse Ox 100% on R/A; sg 21:15 BP 108 / 89; Pulse 135 MON; Resp 16; Pulse Ox 100% on R/A; sg 21:20 BP 112 / 89; Pulse 132; Resp 16; Pulse Ox 100% on R/A; sg 22:00 BP 107 / 82; Pulse 110; Resp 16; Pulse Ox 100% on R/A; sg 23:00 BP 131 / 85; Pulse 122; Resp 14; Temp 97.8; Pulse Ox 100% on R/A; sg 20:20 Body Mass Index 23.34 (61.69 kg, 162.56 cm) ca1 ED Course: 20:18 Patient arrived in ED. am2 20:19 Bob Wiggins MD is Private Physician. am2 20:20 No provider procedures requiring assistance completed. Initial lab(s) drawn, by me, sg sent to lab. Inserted saline lock: 20 gauge in left antecubital area, using aseptic technique. Blood collected. Patient maintains SpO2 saturation greater than 95% on room air. 20:20 Arm band placed on. ca1 20:20 EKG completed in triage. Results shown to MD. ca1 20:21 Abhijit Garcia MD is Attending Physician. ma2 20:39 Triage completed. dm5 20:40 Jeffery Ramirez, RN is Primary Nurse. sg 20:42 Patient has correct armband on for positive identification. Placed in gown. Bed in low sg position. Call light in reach. Side rails up X2. physical therapy assistant instructor on. Pulse ox on. NIBP on. Warm blanket given. Head of bed elevated. 20:49 XRAY Chest (1 view) In Process Unspecified. EDMS 22:31 Evelio Martin DO is Hospitalizing Provider. ma2 22:50 COVID swab sent to lab. sg 09/03 00:00 Patient admitted, IV remains in place. intact, No redness/swelling at site. sg Administered Medications: 09/02 20:36 Drug: Metoprolol 5 mg Route: IVP; Site: left antecubital; ca1 20:50 Drug: NS 0.9% 1000 ml Route: IV; Rate: 75 ml/hr; Site: left antecubital; sg 09/03 00:39 Follow up: IV Status: Infusion continued upon admission sg 09/02 21:00 Drug: Metoprolol 5 mg Route: IVP; Site: left antecubital; sg 21:20 Drug: Metoprolol 5 mg Route: IVP; Site: left antecubital; sg 21:30 Follow up: Response: No adverse reaction; No change in condition sg 21:45 Drug: Potassium Chloride 10 mEq Route: IV; Rate: calculated rate; Site: left sg antecubital; 23:03 Follow up: Response: No adverse reaction; IV Status: Completed infusion sg 21:45 Drug: Digoxin 0.25 mg Route: IVP; Site: left antecubital; sg 22:35 Follow up: Response: No adverse reaction sg 23:03 Drug: Aspirin Chewable Tablet 324 mg Route: PO; sg 09/03 00:00 Follow up: Response: No adverse reaction 09/02 23:03 Drug: Sotalol 80 mg Route: PO; sg 09/03 00:00 Follow up: Response: No adverse reaction 09/02 23:03 Drug: Lovenox 1 mg/kg Route: Sub-Q; Site: right lower abdomen; sg 09/03 00:00 Follow up: Response: No adverse reaction Outcome: 09/02 22:32 Decision to Hospitalize by Provider. ma2 09/03 00:39 Admitted to Tele accompanied by tech, via wheelchair, room 212, with chart, Report sg called to Gricel LOZANO Condition: good Instructed on 00:43 Admitted to 00:50 Patient left the ED. Signatures: Dispatcher [employer] EDMS Elvie Sierra RN RN dm5 Jeffery Ramirez RN RN Shruthi Camarillo Mohammad, MD MD ma2 Margarita Vaca RN RN ca1 Corrections: (The following items were deleted from the chart) 00:43 00:39 Admitted to Tele accompanied by tech, family with patient, via wheelchair, room sg 212, with chart, 00:43 00:39 Condition: good [facility]
--- NOTE | 2020-09-02 22:32 | EDPHYS ---
Physician Documentation [facility] Name: Sommer Robertson Age: 65 yrs Sex: Female : 1955 Arrival Date: 09/02/2020 Time: 20:18 Bed 6 Private MD: Bob Wiggins R ED Physician Abhijit Garcia HPI: 09/02 22:29 This 65 yrs old Female presents to ER via Wheelchair with complaints of Chest ma2 Pressure, Irregular Pulse, dry mouth. 22:29 The patient or guardian reports chest pain that is located primarily in the substernal ma2 area. Onset: gradually, 1 hour(s) ago, 2 day(s) ago. Associated signs and symptoms: Pertinent negatives: None. diaphoresis, lower extremity pain, lower extremity swelling, lightheadedness. Severity of pain: At its worst the pain was very mild in the emergency department the pain is unchanged. Historical: - Allergies: 20:42 Vicodin; sg 20:42 Vicodin; ca1 - Home Meds: 20:42 Coreg Oral [Active]; ca1 - PMHx: 20:42 Hypertension; sg 20:42 Hypertension; ca1 - PSHx: 20:42 foot surgery; Hysterectomy; sg 20:42 Hysterectomy; foot surgery; ca1 - Immunization history:: Adult Immunizations up to date, Adult Immunizations up to date, Pneumococcal vaccine is up to date, Flu vaccine is up to date. - Social history:: Smoking status: Patient denies any tobacco usage or history of. Patient/guardian denies using alcohol, street drugs, The patient lives with family, Smoking status: Patient denies any tobacco usage or history of. - Family history:: not pertinent. ROS: 22:29 Constitutional: Negative for fever, chills, and weight loss. ma2 22:29 All other systems are negative. Exam: 22:29 Constitutional: This is a well developed, well nourished patient who is awake, alert, ma2 and in no acute distress. Head/Face: Normocephalic, atraumatic. ENT: Nares patent. No nasal discharge, no septal abnormalities noted. Tympanic membranes are normal and external auditory canals are clear. Oropharynx with no redness, swelling, or masses, exudates, or evidence of obstruction, uvula midline. Mucous membranes moist. Neck: Trachea midline, no thyromegaly or masses palpated, and no cervical lymphadenopathy. Supple, full range of motion without nuchal rigidity, or vertebral point tenderness. No Meningismus. Chest/axilla: Normal chest wall appearance and motion. Nontender with no deformity. No lesions are appreciated. Cardiovascular: afib with rapid rate 135 bpm with a normal S1 and S2. No gallops, murmurs, or rubs. Normal PMI, no JVD. No pulse deficits. Respiratory: Lungs have equal breath sounds bilaterally, clear to auscultation and percussion. No rales, rhonchi or wheezes noted. No increased work of breathing, no retractions or nasal flaring. Abdomen/GI: Soft, non-tender, with normal bowel sounds. No distension or tympany. No guarding or rebound. No evidence of tenderness throughout. MS/ Extremity: Pulses equal, no cyanosis. Neurovascular intact. Full, normal range of motion. Neuro: Awake and alert, GCS 15, oriented to person, place, time, and situation. Cranial nerves II-XII grossly intact. Motor strength 5/5 in all extremities. Sensory grossly intact. Cerebellar exam normal. Normal gait. Vital Signs: 20:20 BP 133 / 89; Pulse 140; Resp 16 S; Temp 97.8(TE); Pulse Ox 100% on R/A; Weight 61.69 kg ca1 (R); Height 5 ft. 4 in. (162.56 cm) (R); Pain 2/10; 21:00 BP 122 / 92; Pulse 123; Resp 18; Pulse Ox 100% on R/A; sg 21:15 BP 108 / 89; Pulse 135 MON; Resp 16; Pulse Ox 100% on R/A; sg 21:20 BP 112 / 89; Pulse 132; Resp 16; Pulse Ox 100% on R/A; sg 22:00 BP 107 / 82; Pulse 110; Resp 16; Pulse Ox 100% on R/A; sg 23:00 BP 131 / 85; Pulse 122; Resp 14; Temp 97.8; Pulse Ox 100% on R/A; sg 20:20 Body Mass Index 23.34 (61.69 kg, 162.56 cm) ca1 MDM: 20:21 Patient medically screened. ma2 22:29 Differential diagnosis: abnormal EKG, anxiety, chest wall pain, congestive heart ma2 failure gastroesophageal reflux disease (GERD). The patient was given aspirin in the Emergency Department. JUNO Risk Score: not applicable. JUNO Risk Score: TOTAL SCORE = 2. Data reviewed: vital signs, nurses notes. Counseling: I had a detailed discussion with the patient and/or guardian regarding: the historical points, exam findings, and any diagnostic results supporting the discharge/admit diagnosis, the presence of at least one elevated blood pressure reading (>120/80) during this emergency department visit, the need for further work-up and treatment in the hospital. 09/02 20:22 Order name: Basic Metabolic Panel [facility] 09/02 20:22 Order name: CBC with Diff; Complete Time: 21:15 [facility] 09/02 20:22 Order name: LFT's; Complete Time: 21:15 [facility] 09/02 20:22 Order name: Magnesium; Complete Time: 21:15 [facility] 09/02 20:22 Order name: NT PRO-BNP; Complete Time: 21:15 [facility] 09/02 20:22 Order name: PT-INR; Complete Time: 21:28 [facility] 09/02 20:22 Order name: Troponin (emerg Dept Use Only); Complete Time: 21:15 [facility] 09/02 20:22 Order name: XRAY Chest (1 view); Complete Time: 21:15 [facility] 09/02 20:23 Order name: Basic Metabolic Panel; Complete Time: 21:15 [facility] 09/02 22:39 Order name: COVID-19 dm5 09/03 00:04 Order name: SARS-COV-2 RT PCR EDIN 09/03 00:39 Order name: Urine Dipstick--Ancillary (enter results) tt3 09/02 20:22 Order name: EKG; Complete Time: 20:23 ct2 09/02 20:22 Order name: Cardiac monitoring; Complete Time: 20:43 ct2 09/02 20:22 Order name: EKG - Nurse/Tech; Complete Time: 20:43 [facility] 09/02 20:22 Order name: IV Saline Lock; Complete Time: 20:43 ct2 09/02 20:22 Order name: Labs collected and sent; Complete Time: 20:43 [facility] 09/02 20:22 Order name: O2 Per Protocol; Complete Time: 20:43 [facility] 09/02 20:22 Order name: O2 Sat Monitoring; Complete Time: 20:43 [facility] 09/02 20:24 Order name: Urine Dipstick-Ancillary (obtain specimen); Complete Time: 00:38 [facility] Administered Medications: 20:36 Drug: Metoprolol 5 mg Route: IVP; Site: left antecubital; ca1 20:50 Drug: NS 0.9% 1000 ml Route: IV; Rate: 75 ml/hr; Site: left antecubital; sg 09/03 00:39 Follow up: IV Status: Infusion continued upon admission 09/02 21:00 Drug: Metoprolol 5 mg Route: IVP; Site: left antecubital; sg 21:20 Drug: Metoprolol 5 mg Route: IVP; Site: left antecubital; sg 21:30 Follow up: Response: No adverse reaction; No change in condition sg 21:45 Drug: Potassium Chloride 10 mEq Route: IV; Rate: calculated rate; Site: left sg antecubital; 23:03 Follow up: Response: No adverse reaction; IV Status: Completed infusion sg 21:45 Drug: Digoxin 0.25 mg Route: IVP; Site: left antecubital; sg 22:35 Follow up: Response: No adverse reaction 23:03 Drug: Aspirin Chewable Tablet 324 mg Route: PO; sg 09/03 00:00 Follow up: Response: No adverse reaction 09/02 23:03 Drug: Sotalol 80 mg Route: PO; 09/03 00:00 Follow up: Response: No adverse reaction 09/02 23:03 Drug: Lovenox 1 mg/kg Route: Sub-Q; Site: right lower abdomen; 09/03 00:00 Follow up: Response: No adverse reaction Disposition: 09/02/20 22:32 Hospitalization ordered by Evelio Martin for Inpatient Admission. Preliminary diagnosis are Unspecified atrial fibrillation, Tachycardia, unspecified, Chest pain, unspecified. - Bed requested for Telemetry/MedSurg (Inpatient). - Status is Inpatient Admission. sg - Condition is Stable. - Problem is new. - Symptoms are unchanged. Signatures: Dispatcher [employer] EDLatasha Winston RN RN Jeffery Ramirez RN RN sg Vincenzo Brenner, LOADING DOCK HELPER-C LOADING DOCK HELPER-Cla1 Abhijit Garcia MD MD ct2 Margarita Vaca RN RN ca1 Corrections: (The following items were deleted from the chart) 00:14 09/02 22:32 Hospitalization Ordered by Evelio Martin DO for Inpatient Admission. Preliminary diagnosis is Unspecified atrial fibrillation; Tachycardia, unspecified; Chest pain, unspecified. Bed requested for Telemetry/MedSurg (Inpatient). Status is Inpatient Admission. Condition is Stable. Problem is new. Symptoms are unchanged. [facility] 09/03 00:50 00:09/02/2020 22:32 Hospitalization Ordered by Evelio Martin DO for Inpatient sg Admission. Preliminary diagnosis is Unspecified atrial fibrillation; Tachycardia, unspecified; Chest pain, unspecified. Bed requested for Telemetry/MedSurg (Inpatient). Status is Inpatient Admission. Condition is Stable. Problem is new. Symptoms are unchanged. mw
--- NOTE | 2020-09-02 22:50 | P.HP ---
Certification for Inpatient Patient admitted to: Observation With expected LOS: <2 Midnights Patient will require the following post-hospital care: None Practitioner: I am a practitioner with admitting privileges, knowledge of patient current condition, hospital course, and medical plan of care. Services: Services provided to patient in accordance with Admission requirements found in Title 42 Section 412.3 of the Code of Federal Regulations <Vincenzo Brenner - Last Filed: 09/02/20 22:47> Patient admitted to: Inpatient With expected LOS: >2 Midnights <Evelio Martin - Last Filed: 09/03/20 12:39> Patient History Date of Service: 09/02/20 Primary Care Provider: Dr. Miguel, cardiology Dr. Mo Reason for admission: AFib RVR History of Present Illness: 65-year-old female with history of hypertension, hyperlipidemia presents to the emergency department for chest pain and palpitations. Patient reports that she was resting in a chair when she began having a flushed feeling throughout her body followed by palpitations with pressure-like chest pain, substernal radiating to the left arm without any associated symptoms. Patient denies similar episodes in the past. Patient reports that she sees cardiology and had stress test within the last year as well as echocardiogram which were reported to have been normal at that time. Patient was initially in AFib with RVR rate around 140 upon arrival to the emergency department, blood pressure within normal limits. Patient was evaluated, chest x-ray unremarkable, EKG with AFib, labs show potassium 3.4, GFR 82 magnesium 2.5 CBC completely normal. Thyroid panel pending. Patient was given metoprolol 5 mg IV x3, digoxin 0.25 mg IV x1, rate still around 125-135. Patient currently chest pain-free, ED provider wishes to admit patient for further evaluation and management. - Past Medical/Surgical History -: Hypertension -: Hyperlipidemia -: Hysterectomy -: Left foot surgery Psychosocial/ Personal History: Patient is retired, lives with her - Family History Father -: Heart disease - Social History Smoking Status: Never smoker Alcohol use: No CD- Drugs: No Caffeine use: Yes Place of Residence: Home <Vincenzo Brenner - Last Filed: 09/02/20 22:47> Date of Service: 09/03/20 Home medications list reviewed: Yes <Evelio Martin - Last Filed: 09/03/20 12:39> Review of Systems 10-point ROS is otherwise unremarkable Cardiovascular: Chest Pain, Palpitations <Vincenzo Brenner - Last Filed: 09/02/20 22:47> Physical Examination - Physical Exam General: Alert, In no apparent distress HEENT: Atraumatic, PERRLA, Mucous membr. moist/pink Neck: Supple, 2+ carotid pulse no bruit, No LAD Respiratory: Clear to auscultation bilaterally, Normal air movement Cardiovascular: Normal S1 S2, Irregular heart rate/rhythm (AFib RVR rate 125) Capillary refill: <2 Seconds Gastrointestinal: Normal bowel sounds, No tenderness Musculoskeletal: No tenderness Integumentary: No rashes Neurological: Normal speech, Normal strength at 5/5 x4 extr, Normal tone, Normal affect - Studies Laboratory Data (last 24 hrs) 09/02/20 20:20: PT 11.6, INR 0.98 09/02/20 20:20: WBC 6.0, Hgb 13.4, Hct 39.6, Plt Count 168 09/02/20 20:20: Sodium 137, Potassium 3.4 L, BUN 21 H, Creatinine 0.72, Glucose 106, Magnesium 2.5 H, Total Bilirubin 0.4, AST 40 H, ALT 51, Alkaline Phosphatase 89 <Vincenzo Brenner - Last Filed: 09/02/20 22:47> - Studies Laboratory Data (last 24 hrs) 09/02/20 20:20: PT 11.6, INR 0.98 09/02/20 20:20: WBC 6.0, Hgb 13.4, Hct 39.6, Plt Count 168 09/02/20 20:20: Sodium 137, Potassium 3.4 L, BUN 21 H, Creatinine 0.72, Glucose 106, Magnesium 2.5 H, Total Bilirubin 0.4, AST 40 H, ALT 51, Alkaline Irvin sphatase 89 <Evelio Martin - Last Filed: 09/03/20 12:39> Assessment and Plan - Plan Assessment New onset AFib RVR Hypertension Hyperlipidemia Plan New onset AFib RVR: Change beta-heri to sotalol, full-dose Lovenox, monitor on telemetry, rate control as necessary. Cardiology consult in place, echocardiogram ordered, thyroid panel pending. Hypertension: Continue with sotalol in addition to other home medications once verified. Hyperlipidemia: Obtain and continue home medications, lipid panel with morning labs. Discharge Plan: Home Plan to discharge in: 24 Hours - Advance Directives Does patient have a Living Will: No Does patient have a Durable POA for Healthcare: No - Code Status/Comfort Care Code Status Assessed: Yes Critical Care: No Time Spent Managing Pts Care (In Minutes): 55 <Vincenzo Brenner - Last Filed: 09/02/20 22:47> - Plan Case discussed in detail with nurse practitioner. Agree with plan of care. Please see progress note for details. Cardiology agrees with current plan. Continue sotalol. Anticipate patient converting back to normal rhythm <Evelio Martin - Last Filed: 09/03/20 12:39>
[2020-09-02] MEDS ORDERED: SOTALOL HCL 80 MG TAB ONE (23:09)
[2020-09-02] MEDS ORDERED: ASPIRIN 81 MG CHEWABLE TABLET ONE (23:09)
[2020-09-02] MEDS ORDERED: ENOXAPARIN 60 MG/0.6 ML SQ ONE (23:10)
[2020-09-03 00:55] VITALS: O2SAT 100
[2020-09-03] MEDS ORDERED: ONDANSETRON 4 MG/2 ML VIAL IV PRN (00:55)
[2020-09-03] MEDS ORDERED: ACETAMINOPHEN 500 MG TAB PO PRN (00:55)
[2020-09-03] MEDS: NA CHLORIDE 0.9% 1,000 ML IV SCH ×2 (00:55→10:32)
[2020-09-03 04:45] VITALS: BMI 23.0
[2020-09-03] MEDS: SOTALOL HCL 80 MG TAB PO SCH ×2 (04:58→16:09)
[2020-09-03 05:37] LABS: Absolute Lymphocytes (CBC) 1.4 K/uL (0.7-4.9); Basophils % 0.4 % (0-1.3); Hematocrit 37.3 % (36.0-45.0); Lymphocytes % 29.8 % (15.3-44.8); MPV 9.2 fL (7.6-11.3)
[2020-09-03 05:58] LABS: BUN Blood Urea Nitrogen 13 mg/dL (7-18); Bicarbonate 32 mmol/L (21-32); Glucose Level 89 mg/dL (74-106); HDL Cholesterol 84 mg/dL (40-60); LDL Cholesterol, Calculated 60 (<130); Magnesium 2.2 mg/dL (1.8-2.4); Potassium 3.4 mmol/L (3.5-5.1); Sodium Level 139 mmol/L (136-145); Troponin I < 0.02 ng/mL (0.0-0.045)
[2020-09-03] MEDS ORDERED: POTASSIUM CL SA 10 MEQ TAB PO ONE (08:00)
[2020-09-03] MEDS: RIVASTIGMINE 4.6 MG/24 HR PATCH TD SCH (08:38)
[2020-09-03] MEDS: lisinopriL 20 MG TAB PO SCH (08:38)
[2020-09-03] MEDS: ENOXAPARIN 60 MG/0.6 ML SQ SCH ×2 (08:38→20:02)
[2020-09-03] MEDS: AMLODIPINE 5 MG TAB PO SCH (08:39)
[2020-09-03] MEDS: MONTELUKAST 10 MG TAB PO SCH (08:40)
--- NOTE | 2020-09-03 12:44 | P.PN ---
Subjective Date of Service: 09/03/20 Primary Care Provider: Dr. Miguel, cardiology Dr. Mo Chief Complaint: AFib RVR Subjective: Improving Physical Examination - Vital Signs Temperature: 98.2 F Blood Pressure: 142/84 Pulse: 116 Respirations: 16 Pulse Ox (%): 98 - Physical Exam General: Alert, In no apparent distress, Oriented x3, Cooperative HEENT: Atraumatic Neck: Supple Respiratory: Clear to auscultation bilaterally Cardiovascular: Irregular heart rate/rhythm (AFib rate around 100-110) Gastrointestinal: Normal bowel sounds, No masses, No rebound, No guarding Neurological: Normal speech, Normal strength at 5/5 x4 extr, Normal tone, Normal affect - Studies Laboratory Data (last 24 hrs) 09/02/20 20:20: PT 11.6, INR 0.98 09/02/20 20:20: WBC 6.0, Hgb 13.4, Hct 39.6, Plt Count 168 09/02/20 20:20: Sodium 137, Potassium 3.4 L, BUN 21 H, Creatinine 0.72, Glucose 106, Magnesium 2.5 H, Total Bilirubin 0.4, AST 40 H, ALT 51, Alkaline Phosphatase 89 Medications List Reviewed: Yes Assessment & Plan Discharge Plan: Home Plan to discharge in: 24 Hours Physician Review Additional Text: Assessment New onset AFib RVR Hypertension Hyperlipidemia Dementia Plan New onset AFib RVR: Patient now on sotalol. Patient remains in atrial fibrillation with rate better controlled. Continue full-dose Lovenox at 1 milligram/kilogram subcu twice daily. Continue blood pressure medications and cholesterol medication. Case discussed with cardiology. Will need to monitor the patient on sotalol over the next 24-48 hr. Anticipate patient returning back in to normal rhythm with medication. Tsh unremarkable. Lipid panel unremarkable. Will discuss with cardiology for further recommendation. Patient may require cardioversion. Echocardiogram obtained. Hypertension: Continue with home medications of lisinopril and Norvasc. Will monitor and adjust appropriately.. Hyperlipidemia: Continue with statin medication. Lipid panel unremarkable. Dementia: Patient takes Exelon. Will need to investigate this further Time Spent Managing Pts Care (In Minutes): 55
--- NOTE | 2020-09-03 17:15 | EKG ---
Test Date: 2020-09-02 Test Time: 20:25:40 State Wildlife Officer: KATHERINE MEASUREMENT RESULTS: Intervals: Rate: 125 RI: QRSD: 92 QT: 310 QTc: 447 [place]: P: RI: QRS: 50 T: 48 INTERPRETIVE STATEMENTS: Atrial fibrillation with rapid ventricular response Nonspecific ST abnormality Abnormal ECG Compared to ECG 09/09/2019 17:09:49 ST (T wave) deviation now present Sinus rhythm no longer present Electronically Signed On 09-03-20 17:12:55 [employer] by Oscar Byers
[2020-09-03] MEDS ORDERED: ATORVASTATIN 40 MG TAB PO SCH (21:00)
[2020-09-04] MEDS: SOTALOL HCL 80 MG TAB PO SCH (05:21)
[2020-09-04 05:42] LABS: BUN Blood Urea Nitrogen 13 mg/dL (7-18); Bicarbonate 32 mmol/L (21-32); Glucose Level 98 mg/dL (74-106); Potassium 4.3 mmol/L (3.5-5.1); Sodium Level 138 mmol/L (136-145)
--- NOTE | 2020-09-04 08:14 | P.DS ---
Admission Date: 09/02/20 Discharge Date: 09/04/20 Primary Care Provider: Dr. Miguel, Cardiology Dr. Mo Disposition: ROUTINE DISCHARGE Discharge Condition: GOOD Reason for Admission: AFib RVR Consultations: Cardiology-Dr. Byers Procedures: ECHO: Unremarkable Medical problem list: Chest pain, palpitations secondary to New onset AFib RVR Hypertension Hyperlipidemia Dementia Brief History of Present Illness: 65-year-old female with history of hypertension, hyperlipidemia presents to the emergency department for chest pain and palpitations. Patient reports that she was resting in a chair when she began having a flushed feeling throughout her body followed by palpitations with pressure-like chest pain. Patient denies similar episodes in the past. Patient reports that she sees cardiology and had stress test within the last year as well as echocardiogram which were reported to have been normal at that time. Patient was initially in AFib with RVR rate around 140 upon arrival to the emergency department, blood pressure within normal limits. Patient was evaluated, chest x-ray unremarkable, EKG with AFib, labs show potassium 3.4, GFR 82 magnesium 2.5 CBC completely normal. Thyroid panel pending. Patient was given metoprolol 5 mg IV x3, digoxin 0.25 mg IV x1, rate still around 125-135. Patient was admitted for further evaluation and treatment. Hospital Course: Patient presented with chest pain and palpitation. Patient found to have new onset atrial fibrillation with RVR. Patient was admitted for further evaluation and treatment. Patient initially given beta-heri therapy without conversion. Patient was then seen and evaluated by Cardiology. Patient was placed on sotalol and monitored over 36 hr. Patient remains in atrial fibrillation with rate around 110. No chest pain noted at this time. Patient also placed on anti coagulation therapy. Echocardiogram unremarkable as per Cardiology. At discharge cardiology recommends to discharge patient home with sotalol 80 mg 1 pill twice daily along with Eliquis 5 mg 1 pill twice daily. Education on sotalol and Eliquis will be provided. Education on atrial fibrillation also provided. Patient will need a follow up with cardiology on Wednesday. If the p atient remains in atrial fibrillation then elective cardioversion will be considered. This will be done with the help of Cardiology. Patient with hypertension. Medications have been adjusted since the patient will be on sotalol. Carvedilol has been discontinued. Blood pressure remains stable on current medication. At discharge patient will continue with Norvasc 5 mg daily and lisinopril 40 mg daily. Recommend to maintain blood pressure less than 130/80. Further adjustment in her medication can be done by cardiology. Patient with hyperlipidemia. This remained stable. At discharge patient will continue with Lipitor 40 mg daily. Patient also takes Singulair 10 mg daily and Exelon patch daily. Both medications can be restarted. Vital Signs/Physical Exam: Temp Pulse Resp BP Pulse Ox 97 F 120 H 19 121/75 98 09/04/20 04:00 09/04/20 04:00 09/04/20 04:00 09/04/20 04:00 09/04/20 04:00 General: Alert, In no apparent distress, Oriented x3, Cooperative HEENT: Atraumatic Neck: Supple Respiratory: Clear to auscultation bilaterally, Normal air movement Cardiovascular: Irregular heart rate/rhythm (Atrial fibrillation with rate around 110) Gastrointestinal: Normal bowel sounds, No tenderness, No masses, No rebound, No guarding Neurological: Normal speech, Normal strength at 5/5 x4 extr, Normal tone, Normal affect Laboratory Data at Discharge: WBC 4.8 K/uL (4.3-10.9) D 09/03/20 05:12 Hgb 12.5 g/dL (12.0-15.0) 09/03/20 05:12 Hct 37.3 % (36.0-45.0) 09/03/20 05:12 Plt Count 169 K/uL (152-406) 09/03/20 05:12 PT 11.6 SECONDS (9.5-12.5) 09/02/20 20:20 INR 0.98 09/02/20 20:20 Sodium 138 mmol/L (136-145) 09/04/20 05:07 Potassium 4.3 mmol/L (3.5-5.1) 09/04/20 05:07 BUN 13 mg/dL (7-18) 09/04/20 05:07 Creatinine 0.52 mg/dL (0.55-1.3) L 09/04/20 05:07 Glucose 98 mg/dL (74-106) 09/04/20 05:07 Magnesium 2.2 mg/dL (1.8-2.4) 09/03/20 05:12 Total Bilirubin 0.4 mg/dL (0.2-1.0) 09/02/20 20:20 AST 40 U/L (15-37) H 09/02/20 20:20 ALT 51 U/L (12-78) 09/02/20 20:20 Alkaline Phosphatase 89 U/L (45-117) 09/02/20 20:20 Troponin I < 0.02 ng/mL (0.0-0.045) 09/03/20 11:21 Triglycerides 41 mg/dL (<150) 09/03/20 05:12 Cholesterol 152 mg/dL (<200) 09/03/20 05:12 HDL Cholesterol 84 mg/dL (40-60) H 09/03/20 05:12 Cholesterol/HDL Ratio 1.81 09/03/20 05:12 Home Medications: Amlodipine Besylate 1 tab PO DAILY 09/03/20 Atorvastatin Calcium 1 tab PO BEDTIME 09/03/20 Lisinopril [Zestril] 1 tab PO DAILY 09/03/20 Montelukast [Singulair*] 1 tab PO DAILY 09/03/20 Rivastigmine Patch [Exelon 4.6 mg Patch*] 1 patch TD DAILY 09/03/20 Apixaban [Eliquis] 5 mg PO BID #60 tablet 09/04/20 Sotalol HCl [Betapace*] 80 mg PO BID 6AM 6PM #60 tab 09/04/20 New Medications: Sotalol HCl [Betapace*] 80 mg PO BID 6AM 6PM #60 tab Apixaban [Eliquis] 5 mg PO BID #60 tablet Patient Discharge Instructions: Follow up with PCP in 1 week to follow up this hospitalization. Patient presented with chest pain and palpitation. Patient found to have new onset atrial fibrillation with RVR. Patient was admitted for further evaluation and treatment. Patient initially given beta-heri therapy without conversion. Patient was then seen and evaluated by Cardiology. Patient was placed on sotalol and monitored over 36 hr. Patient remains in atrial fibrillation with rate around 110. No chest pain noted at this time. Patient also placed on anti coagulation therapy. Echocardiogram unremarkable as per Cardiology. At discharge cardiology recommends to discharge patient home with sotalol 80 mg 1 pill twice daily along with Eliquis 5 mg 1 pill twice daily. Education on sotalol and Eliquis will be provided. Education on atrial fibrillation also provided. Patient will need a follow up with cardiology on Wednesday. If the patient remains in atrial fibrillation then elective cardioversion will be considered. This will be done with the help of Cardiology. Patient with hypertension. Medications have been adjusted since the patient will be on sotalol. Carvedilol has been discontinued. Blood pressure remains stable on current medication. At discharge patient will continue with Norvasc 5 mg daily and lisinopril 40 mg daily. Recommend to maintain blood pressure less than 130/80. Further adjustment in her medication can be done by cardiology. Patient with hyperlipidemia. This remained stable. At discharge patient will continue with Lipitor 40 mg daily. Patient also takes Singulair 10 mg daily and Exelon patch daily. Both medications can be restarted. Diet: AHA Activity: Ad crystal Followup: Adithya Wiggins MD [Primary Care Provider] - Time spent managing pt's care (in minutes): 55
[2020-09-04] MEDS: RIVASTIGMINE 4.6 MG/24 HR PATCH TD SCH (08:27)
[2020-09-04] MEDS: lisinopriL 20 MG TAB PO SCH (08:27)
[2020-09-04] MEDS: AMLODIPINE 5 MG TAB PO SCH (08:28)
[2020-09-04] MEDS: ENOXAPARIN 60 MG/0.6 ML SQ SCH (08:28)
[2020-09-04] MEDS: MONTELUKAST 10 MG TAB PO SCH (08:29)
--- NOTE | 2020-09-04 08:29 | ECHO ---
HEIGHT: 5 ft 4 in WEIGHT: 134 lb 1.6 oz DATE OF STUDY: 09/03/[address]: Vincenzo Brenner NP 2-DIMENSIONAL: YES M.MODE: YES DOPPLER: YES COLOR FLOW: YES TDS: PORTABLE: DEFINITY: BUBBLE STUDY: DIAGNOSIS: NEW ATRIAL FIBRILLATION CARDIAC HISTORY: CATHERIZATION: SURGERY: PROSTHETIC VALVE: PACEMAKER: MEASUREMENTS (cm) DIASTOLIC (NORMALS) SYSTOLIC (NORMALS) IVSd 1.1 (0.6-1.2) LA Diam 3.3 (1.9-4.0) LVEF 69% LVIDd 4.2 (3.5-5.7) LVIDs 2.6 (2.0-3.5) %FS 38% LVPWd 1.0 (0.6-1.2) Ao Diam 3.3 (2.0-3.7) 2 DIMENSIONAL ASSESSMENT: RIGHT ATRIUM: NORMAL LEFT ATRIUM: NORMAL RIGHT VENTRICLE: NORMAL LEFT VENTRICLE: NORMAL TRICUSPID VALVE: NORMAL MITRAL VALVE: NORMAL PULMONIC VALVE: NORMAL AORTIC VALVE: NORMAL PERICARDIAL EFFUSION: NONE AORTIC ROOT: NORMAL LEFT VENTRICULAR WALL MOTION: NORMAL DOPPLER/COLOR FLOW: MILD MITRAL AND TRICUSPID REGURGITATION. COMMENTS: ATRIAL FIBRILLATION. NORMAL LEFT VENTRICULAR SIZE AND FUNCTION. MILD MITRAL AND TRICUSPID REGURGITATION. TECHNOLOGIST: HOLLIE RUIZ
[2020-09-04 08:31] VITALS: BP 123/76
[2020-09-04 08:45] VITALS: TEMP 97
--- NOTE | 2020-09-04 13:30 | CON ---
Date of Consultation: 09/03/2020 Reason For Consultation: New-onset atrial fibrillation. History Of Present Illness: Ms. Robertson is a 65-year-old white woman with history of hypertension, dysl ipidemia, and asthma, came in with new onset atrial fibrillation. By the time I saw her, she was alr demetria placed on sotalol, lovastatin. Her medications at home were continued except for her Coreg. Sh sameer did have some chest tightness with atrial fibrillation and some shortness of breath. Does complain of palpitations, but no syncope. No fever. No chills. No nausea, vomiting, diaphoresis, PND, orth opnea, or pedal edema. Allergies: TYLENOL AND . Review of Systems: Negative. Social History: Negative. Family History: Negative. Medications: At home include amlodipine, Coreg, Lipitor, lisinopril, and Singulair. Physical Examination: Vital Signs: Stable. Atrial fibrillation, rate of 90. HEENT: Negative. Neck: Supple. No bruit. Chest: Clear. Cardiac: Atrial fibrillation. Abdomen: Benign. Extremities: No clubbing, cyanosis, or edema. Diagnostic Data: She had potassium 3.4. Initial EKG showed atrial fibrillation with rapid ventricul ar response. Chest x-ray was negative. Impression And Plan: New onset atrial fibrillation. I will continue sotalol. Obtain 2D echocardiog issac. Continue Lovenox. She will eventually have to be switched to oral anticoagulation with Xarelto or Eliquis because she has high CHADS score. Continue her blood pressure medication including lisin opril. She is to continue her Lipitor. Her Coreg should be held considering . We will se e what the echo shows and see what the over the next few hours before making further decis ions. an outpatient Lexiscan down the road. She may need an electric cardioversion if sh sameer does not convert with sotalol . I discussed the case further with Dr. Martin. MILDRED/BENITO Voice ID: [id number] Report ID: [id number]
--- NOTE | 2020-09-09 10:59 | PN ---
Date of Progress Note: 09/04/2020 Ms. Robertson was seen on 09/03/2020 with history of hypertension, dyslipidemia, asthma with new-onset atr ial fibrillation. She remains on sotalol. She is also on Lovenox. She is on Coreg as well. A 2D e chocardiogram that was done was normal except for atrial fibrillation. Her ejection fraction was 69% . I would continue her sotalol. Continue the Xarelto 20 mg daily. She can go home after 3 dosages total. She has already received 3 dosages. She is in AFib at a rate of 100. I will see her in the office as an outpatient and if she remains in atrial fibrillation, we will do a cardioversion in abou t 3 weeks. She should have an MPI down the road. MILDRED/BENITO Voice ID: [id number] Report ID: [id number]
== END 2020-09-04 10:53 | disposition home or self-care (01) ==
LOC: ER 20:17 → ERHOLD 22:42 → 2ND 09-03 00:44
PROVIDERS: ADMIT Family Medicine; ATTEND Family Medicine
DX: I48.91 Unspecified atrial fibrillation (principal); I10 Essential (primary) hypertension; E78.5 Hyperlipidemia, unspecified; F03.90 Unspecified dementia, unspecified severity, without behavioral disturbance, psychotic disturbance, mood disturbance, and anxiety; Z20.822 Contact with and (suspected) exposure to COVID-19; R94.31 Abnormal electrocardiogram [ECG] [EKG]; J45.909 Unspecified asthma, uncomplicated
CPT/HCPCS: 96365; 96361; 93005; 93306; 85025 ×2; 80048 ×3; 36415 ×2; 83735 ×2; 85610; 80061; 80076; 84443; 84484 ×3; 84439; 83880; 71045; 96375; 96372; 99285; U0003; J1160; J3480; J1650 ×4; J7030 ×2

== ENCOUNTER 2020-09-20 14:27 | Observation (INO) | payer OTHER ==
[2020-09-20] MEDS ORDERED: NITROGLYCERIN/D5W 50 MG/250 ML BTL IV ONE (14:30)
[2020-09-20] MEDS ORDERED: FUROSEMIDE 100 MG/10 ML VIAL IV ONE (14:30)
--- OUTSIDE RECORDS SUMMARY | 2020-09-20 14:30 | XMS REPORT | Continuity of Care Document ---
:1955 Author Organization [facility] t Address [address] [place] [address] Dr. Acuna. [address] [place] [address] Care Team Providers Name Role Phone Doctor Unassigned, Name Attending Clinician Unavailable Jelani HESTER, Gene Attending Clinician Problems This patient has no known problems. Allergies, Adverse Reactions, Alerts This patient has no known allergies or adverse reactions. Medications This patient has no known medications. Procedures This patient has no known procedures. Encounters Start End Encounter Admission Attending Care Care Encounter Source Date/Time Date/Time Type Type Clinicians Facility Department ID 2020-08-28 2020-08-28 Orders Doctor RENATA [id number] 00:00:00 00:00:00 Only UnassignedPITA [id number] [place] [facility] [id number] 2020-08-27 2020-08-27 Telephone MANPREET Palomares [id number] 00:00:00 00:00:00 Callum White [id number] [place] [id number] Professio [phone] [address] 2020-08-23 2020-08-23 Telephone Jelani IATERI [id number] 00:00:00 00:00:00 Callum White [id number] [place] [id number] Professio [phone] [address] 2020-08-17 2020-08-17 [facility] [id number] 00:00:00 00:00:00 Callum White [id number] [place] [id number] Professio [phone] [address] 2020-07-22 2020-07-22 Telephone [facility] [id number] 00:00:00 00:00:00 Callum White [id number] [place] [id number] Professio [phone] [address] 2020-07-19 2020-07-19 Office [facility] [id number] 15:01:06 15:57:20 Visit Callum White [id number] [place] [id number] Professio [phone] [address] Results This patient has no known results.
--- OUTSIDE RECORDS SUMMARY | 2020-09-20 14:31 | XMS REPORT | Summary of Care ---
:1955 [address] [facility] - Health Address [address] [place] [address] Care Team Providers Name Role Phone Juana Wiggins MD Primary Care Provider Encounter Details Date Type Department Care Team Description 08/28/[address] [facility] Doctor Unassigned, No [address] [facility] [place] [address] [address] [place] [id number] Allergies No Known Allergiesdocumented as of this encounter (statuses as of 09/11/2020) Medications Medication Sig Dispensed Refills Start Date [...] as of this encounter (statuses as of 09/11/2020) Active Problems Not on filedocumented as of this encounter (statuses as of 09/11/2020) Social History Tobacco Use Types Packs/Day Years Used Date Never Assessed Sex Assigned at Date Recorded Not on file documented as of this encounter Last Filed Vital Signs Not on filedocumented in this encounter Plan of Treatment Date Type Specialty Care Team Description 10/18/2020 Office Visit Neurology Callum Palomares MD [address] [place] [address]. [place] [phone] Health Maintenance Due Date Last Done Comments HEPATITIS C (HCV) SCREEN 1955 SARS-CoV-2 (COVID-19) Vaccine (1 1972 of 2) DTaP,Tdap,and Td Vaccines (1 - 02/13/1975 Tdap) [...] this topic documented as of this encounter Procedures Procedure Name Priority Date/Time Associated Diagnosis Comme nts INSURANCE CORRESPONDENCE Routine 08/28/2020 12:01 AM SR. [employer] PROC[employer] documented in this encounter Results Not on filedocumented in this encounter Insurance Payer Benefit Plan / Group Subscriber ID Effective Dates Phone Address Type AETNA AETNA HMO [id number] 2019-Present O documented as of this encounter
[2020-09-20] MEDS ORDERED: NA CHLORIDE 0.9% 500 ML ONE (15:14)
[2020-09-20] MEDS ORDERED: METOPROLOL TARTRATE 5 MG/5 ML INJ IV ONE ×2 (15:14→16:15)
[2020-09-20 15:32] LABS: Absolute Lymphocytes (CBC) 1.2 K/uL (0.7-4.9); Basophils % 0.3 % (0-1.3); Hematocrit 43.3 % (36.0-45.0); Lymphocytes % 17.7 % (15.3-44.8); MPV 9.7 fL (7.6-11.3); RBC Red Blood Cell Count 4.67 M/uL (3.86-4.86)
[2020-09-20 15:33] LABS: Protime INR 1.06
--- NOTE | 2020-09-20 15:33 | RAD REPORT ---
EXAM DESCRIPTION: RAD - Chest Single View - 09/20/2020 3:13 pm CLINICAL HISTORY: PALPITATIONS Chest pain. COMPARISON: Chest Single View dated 09/02/2020; Chest Pa And Lat (2 Views) dated 09/08/2019; CHEST SIN GLE VIEW dated 02/11/2011; CHEST SINGLE VIEW dated 11/05/2009 FINDINGS: Portable technique limits examination quality. The lungs are grossly clear. The heart is normal in size. No displaced fractures. IMPRESSION: No acute intrathoracic process suspected.
[2020-09-20 15:46] LABS: BUN Blood Urea Nitrogen 10 mg/dL (7-18); Bicarbonate 32 mmol/L (21-32); Glucose Level 92 mg/dL (74-106); Magnesium 2.5 mg/dL (1.8-2.4); NT PRO-BNP 1728 pg/mL (<125); Potassium 3.6 mmol/L (3.5-5.1); Sodium Level 138 mmol/L (136-145); Troponin (Emerg Dept Use Only) < 0.02 ng/mL (0.0-0.045)
[2020-09-20] MEDS ORDERED: SOTALOL HCL 80 MG TAB ONE ×2 (17:50→18:40)
--- NOTE | 2020-09-20 18:15 | EDPHYS ---
Physician Documentation [facility] Name: Sommer Robertson Age: 65 yrs Sex: Female : 1955 Arrival Date: 09/20/2020 Time: 14:28 Bed 16 Private MD: Bob Wiggins R ED Physician Seven Del Real HPI: 09/20 15:16 This 65 yrs old Female presents to ER via Ambulatory with complaints of rn Irregular Pulse, Abnormal EKG. 15:16 The patient presents with a history of heart racing. Context: The symptoms occur at rn rest. Onset: The symptoms/episode began/occurred this morning. Duration: The patient or guardian reports a single episode. Modifying factors: The symptoms are aggravated by nothing. The symptoms are alleviated by nothing. Severity of symptoms: At their worst the symptoms were mild in the emergency department the symptoms are unchanged. The patient has experienced a previous episode. The patient has been recently seen by a physician:. Reports sent by cardiology clinic for afib with rvr, got first covid shot this AM, otherwise was feeling ok, shortly after shot began to feel palpitations, went to cardiology clinic, ecg obtained, sent here. No syncope/chest pain/sob. Takes sotalol and eliquis, recently admitted here 2 weeks ago with new onset afib it sounds like.. Historical: - Allergies: 14:41 Vicodin; em - PMHx: 14:41 Hypertension; Asthma; em - PSHx: 14:41 foot surgery; Hysterectomy; em - Immunization history:: Adult Immunizations up to date. - Social history:: Smoking status: Patient denies any tobacco usage or history of. - Family history:: not pertinent. - Hospitalizations: : The patient was recently seen at [facility]. ROS: 15:16 Constitutional: Negative for fever, chills, and weight loss, Eyes: Negative for injury, rn pain, redness, and discharge, Neck: Negative for injury, pain, and swelling, Cardiovascular: + palpitations Respiratory: Negative for shortness of breath, cough, wheezing, and pleuritic chest pain, Abdomen/GI: Negative for abdominal pain, nausea, vomiting, diarrhea, and constipation, Back: Negative for injury and pain, MS/Extremity: Negative for injury and deformity, Skin: Negative for injury, rash, and discoloration, Neuro: Negative for headache, weakness, numbness, tingling, and seizure. Exam: 15:16 Constitutional: This is a well developed, well nourished patient who is awake, alert, rn and in no acute distress. Head/Face: Normocephalic, atraumatic. ENT: MMM, no stridor Cardiovascular: Tachycardic, irregularly irregular Respiratory: No increased work of breathing, no retractions or nasal flaring. Abdomen/GI: soft, non-tender Skin: Warm, dry MS/ Extremity: Pulses equal, no cyanosis. Neuro: Awake and alert, GCS 15 15:16 ECG was reviewed by the Attending Physician. Vital Signs: 14:38 BP 131 / 97; Pulse 124; Resp 18; Temp 98.8; Pulse Ox 100% on R/A; Weight 61.23 kg; em Height 5 ft. 4 in. (162.56 cm); Pain 0/10; 15:30 BP 143 / 97; Pulse 117; Resp 14; Pulse Ox 98% ; bp 17:05 BP 136 / 111; Pulse 119; Resp 17; Pulse Ox 97% ; bp 20:30 BP 120 / 93; Pulse 113; Resp 18; Pulse Ox 97% on R/A; jb4 14:38 Body Mass Index 23.17 (61.23 kg, 162.56 cm) em MDM: 14:46 Patient medically screened. rn 18:14 ED course: Consulted with Dr. 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 . 09/20 14:53 Order name: Basic Metabolic Panel; Complete Time: 15:53 rn 09/20 14:53 Order name: CBC with Diff; Complete Time: 15:53 rn 09/20 14:53 Order name: Magnesium; Complete Time: 15:53 rn 09/20 14:53 Order name: NT PRO-BNP; Complete Time: 15:53 rn 09/20 14:53 Order name: PT-INR; Complete Time: 15:36 rn 09/20 14:53 Order name: Troponin (emerg Dept Use Only); Complete Time: 15:53 rn 09/20 14:53 Order name: XRAY Chest (1 view); Complete Time: 15:36 rn 09/20 18:42 Order name: COVID-19 : Document "Date of Symptom Onset" if Symptomatic. sg 09/20 20:42 Order name: SARS-COV-2 RT PCR EDNY 09/20 14:53 Order name: EKG; Complete Time: 14:54 rn 09/20 14:53 Order name: Cardiac monitoring; Complete Time: 14:54 rn 09/20 14:53 Order name: EKG - Nurse/Tech; Complete Time: 14:54 rn 09/20 14:53 Order name: IV Saline Lock; Complete Time: 15:18 rn 09/20 14:53 Order name: Labs collected and sent; Complete Time: 15:18 rn 09/20 14:53 Order name: O2 Per Protocol; Complete Time: 14:54 rn 09/20 14:53 Order name: O2 Sat Monitoring; Complete Time: 14:54 rn EC:16 Rate is 125 beats/min. Rhythm is irregularly irregular. QRS [place] is Normal. MS interval rn is normal. QRS interval is normal. QT interval is normal. No Q waves. T waves are Normal. No ST changes noted. Clinical impression: atrial fibrillation with RVR. Interpreted by me. Reviewed by me. Administered Medications: 15:10 Drug: Metoprolol 5 mg Route: IVP; Site: left antecubital; bp 15:40 Follow up: Response: No adverse reaction; No change in condition bp 15:10 Drug: NS 0.9% 500 ml Route: IV; Rate: bolus; Site: left antecubital; bp 17:44 Follow up: IV Status: Completed infusion; IV Intake: 500ml bp 15:45 Drug: Metoprolol 5 mg Route: IVP; Site: left antecubital; bp 17:44 Follow up: Response: No adverse reaction; No change in condition bp 17:30 Drug: Sotalol 80 mg Route: PO; bp 18:26 Drug: Sotalol 40 mg Route: PO; bp Disposition: 09/20/20 18:15 Hospitalization ordered by Sagar Del Real for Observation. Preliminary diagnosis is Persistent atrial fibrillation. - Bed requested for Telemetry/MedSurg (observation). - Status is Observation. jb4 - Condition is Stable. - Problem is an acute exacerbation. - Symptoms are unchanged. Signatures: Dispatcher [employer] [facility] Neri Dodson, Seven Rosa RN, MD MD rn Garcia, Cindy, RN RN cg Bryson, James RN RN jb4 Marshal Man, RN RN bp Corrections: (The following items were deleted from the chart) 18:17 18:15 Hospitalization Ordered by Evelio Martin DO for Observation. Preliminary rn diagnosis is Persistent atrial fibrillation. Bed requested for Telemetry/MedSurg (observation). Status is Observation. Condition is Stable. Problem is an acute exacerbation. Symptoms are unchanged. rn 20:46 18:17 09/20/2020 18:15 Hospitalization Ordered by Sagar Del Real MD for Observation. curly Preliminary diagnosis is Persistent atrial fibrillation. Bed requested for Telemetry/MedSurg (observation). Status is Observation. Condition is Stable. Problem is an acute exacerbation. Symptoms are unchanged. rn 21:37 20:46 09/20/2020 18:15 Hospitalization Ordered by Sagar Del Real MD for Observation. jb4 Preliminary diagnosis is Persistent atrial fibrillation. Bed requested for Telemetry/MedSurg (observation). Status is Observation. Condition is Stable. Problem is an acute exacerbation. Symptoms are unchanged.
--- NOTE | 2020-09-20 18:15 | ER ---
Nurse's Notes [facility] Name: Sommer Robertson Age: 65 yrs Sex: Female : 1955 Arrival Date: 09/20/2020 Time: 14:28 Bed 16 Private MD: Bob Wiggins R Diagnosis: Persistent atrial fibrillation Presentation: 09/20 14:38 Chief complaint: Patient states: was at cardiology office and was told to come to the em ED for Afib, hx of Afib, reports dizziness, chest pressure, denies pain. Coronavirus screen: Client denies travel out of the [place] in the last 14 days. Ebola Screen: Patient negative for fever greater than or equal to 101.5 degrees Fahrenheit, and additional compatible Ebola Virus Disease symptoms Patient denies exposure to infectious person. Patient denies travel to an Ebola-affected area in the 21 days before illness onset. No symptoms or risks identified at this time. Initial Sepsis Screen: Does the patient meet any 2 criteria? HR > 90 bpm. No. Patient's initial sepsis screen is negative. Does the patient have a suspected source of infection? No. Patient's initial sepsis screen is negative. Risk Assessment: Do you want to hurt yourself or someone else? Patient reports no desire to harm self or others. Onset of symptoms was September 20, 2020. 14:38 Method Of Arrival: Ambulatory em 14:38 Acuity: MARIAA 3 em Triage Assessment: 14:45 General: Appears in no apparent distress. uncomfortable, Behavior is cooperative, bp appropriate for age, anxious. Pain: Denies pain. EENT: No deficits noted. Neuro: No deficits noted. Cardiovascular: Rhythm is atrial fibrillation with rapid ventricular response. Respiratory: No deficits noted. GI: No signs and/or symptoms were reported involving the gastrointestinal system. GI: No signs and/or symptoms were reported involving the gastrointestinal system. : No signs and/or symptoms were reported regarding the genitourinary system. Derm: No deficits noted. Musculoskeletal: No deficits noted. Historical: - Allergies: 14:41 Vicodin; em - PMHx: 14:41 Hypertension; Asthma; em - PSHx: 14:41 foot surgery; Hysterectomy; em - Immunization history:: Adult Immunizations up to date. - Social history:: Smoking status: Patient denies any tobacco usage or history of. - Family history:: not pertinent. - Hospitalizations: : The patient was recently seen at [facility]. Screenin:24 Abuse screen: Denies threats or abuse. Denies injuries from another. Tuberculosis bp screening: No symptoms or risk factors identified. Fall Risk None identified. 16:05 Nutritional screening: No deficits noted. bp Assessment: 14:45 General: SEE TRIAGE NOTE. bp 17:06 Reassessment: No changes from previously documented assessment. Patient and/or family bp updated on plan of care and expected duration. Pain level reassessed. Cardiovascular: Rhythm is atrial fibrillation with rapid ventricular response. 19:00 Reassessment: Patient appears in no apparent distress at this time. Patient and/or jb4 family updated on plan of care and expected duration. Pain level reassessed. Patient is alert, oriented x 3, equal unlabored respirations, skin warm/dry/pink. 20:00 Reassessment: Patient appears in no apparent distress at this time. Patient and/or jb4 family updated on plan of care and expected duration. Pain level reassessed. Patient is alert, oriented x 3, equal unlabored respirations, skin warm/dry/pink. 21:00 Reassessment: Patient appears in no apparent distress at this time. Patient and/or jb4 family updated on plan of care and expected duration. Pain level reassessed. Patient is alert, oriented x 3, equal unlabored respirations, skin warm/dry/pink. Vital Signs: 14:38 BP 131 / 97; Pulse 124; Resp 18; Temp 98.8; Pulse Ox 100% on R/A; Weight 61.23 kg; em Height 5 ft. 4 in. (162.56 cm); Pain 0/10; 15:30 BP 143 / 97; Pulse 117; Resp 14; Pulse Ox 98% ; bp 17:05 BP 136 / 111; Pulse 119; Resp 17; Pulse Ox 97% ; bp 20:30 BP 120 / 93; Pulse 113; Resp 18; Pulse Ox 97% on R/A; jb4 14:38 Body Mass Index 23.17 (61.23 kg, 162.56 cm) em ED Course: 14:28 Patient arrived in ED. ag5 14:30 Bob Wiggins MD is Private Physician. ag5 14:40 Triage completed. em 14:41 Arm band placed on. em 14:46 Seven Del Real MD is Attending Physician. rn 14:46 Marshal Man, BLAKE is Primary Nurse. bp 15:13 XRAY Chest (1 view) In Process Unspecified. EDMS 15:18 Inserted saline lock: 20 gauge in left antecubital area, using aseptic technique. Blood dh4 collected. 16:05 Patient has correct armband on for positive identification. Placed in gown. Bed in low bp position. Call light in reach. Side rails up X2. monitor car operator on. Pulse ox on. NIBP on. 18:14 Evelio Martin DO is Hospitalizing Provider. rn 18:17 Sagar Del Real MD is Hospitalizing Provider. rn 21:23 No provider procedures requiring assistance completed. Patient admitted, IV remains in lp1 place. 21:36 Primary Nurse role handed off by Marshal Man RN jb4 21:36 Ranjeet Degroot RN is Primary Nurse. jb4 Administered Medications: 15:10 Drug: Metoprolol 5 mg Route: IVP; Site: left antecubital; bp 15:40 Follow up: Response: No adverse reaction; No change in condition bp 15:10 Drug: NS 0.9% 500 ml Route: IV; Rate: bolus; Site: left antecubital; bp 17:44 Follow up: IV Status: Completed infusion; IV Intake: 500ml bp 15:45 Drug: Metoprolol 5 mg Route: IVP; Site: left antecubital; bp 17:44 Follow up: Response: No adverse reaction; No change in condition bp 17:30 Drug: Sotalol 80 mg Route: PO; bp 18:26 Drug: Sotalol 40 mg Route: PO; bp Intake: 17:44 IV: 500ml; Total: 500ml. bp Outcome: 18:15 Decision to Hospitalize by Provider. rn 21:22 Admitted to Med/surg room 205, with chart, Report called to BLAKE Tilley lp1 21:22 Condition: stable 21:22 Instructed on the need for admit. 21:37 Patient left the ED. jb4 Signatures: Dispatcher [employer] EDDE Neri Dodson RN RN Seven Del Real MD MD rn Pena, Laura, RN RN lp1 Ranjeet Degroot RN RN jb4 Marshal Man, RN RN bp Jitendra Dumont ag5 Feliciano Barry 4
--- NOTE | 2020-09-20 20:00 | P.HP ---
Certification for Inpatient Patient admitted to: Observation With expected LOS: <2 Midnights Patient will require the following post-hospital care: None Practitioner: I am a practitioner with admitting privileges, knowledge of patient current condition, hospital course, and medical plan of care. Services: Services provided to patient in accordance with Admission requirements found in Title 42 Section 412.3 of the Code of Federal Regulations <Vincenzo Brenner - Last Filed: 09/20/20 19:56> Patient History Date of Service: 09/20/20 Reason for admission: A fib RVR History of Present Illness: 65-year-old female with history of atrial fibrillation on chronic anticoagulation therapy, hypertension, hyperlipidemia presents the emergency department for AFib RVR, patient was at Cardiology office, noted to be tachycardic with a rate around 120-130. Patient currently taking sotalol 80 mg twice daily cardiology recommended evaluation in the emergency department. Patient presented to the emergency department heart rate around 140 was given metoprolol, case was discussed with cardiology who recommended increasing dose of sotalol from 80 mg to 120 mg p.o. b.i.d.. Additional dose of 40 mg of sotalol administered in the emergency department, will monitor patient overnight for observation. Labs unremarkable at this time, patient is chest pain-free doing well. Will admit under observation. - Past Medical/Surgical History Diabetic: No -: Hypertension -: Hyperlipidemia -: Atrial fibrillation on chronic anticoagulation therapy-Eliquis, sotalol -: Hysterectomy -: Left foot surgery Psychosocial/ Personal History: Patient is retired, lives with her - Family History Father -: Heart disease - Social History Smoking Status: Never smoker Alcohol use: No CD- Drugs: No Caffeine use: Yes Place of Residence: Home <Vincezno Brenner - Last Filed: 09/20/20 19:56> Date of Service: 09/30/20 <Sagar Del Real - Last Filed: 09/30/20 20:37> Allergies acetaminophen [From Vicodin] Allergy (Verified 09/20/20 22:34) Itching/Hives/Rash hydrocodone [From Vicodin] Allergy (Verified 09/20/20 22:34) Itching/Hives/Rash Home Medications: Amlodipine Besylate 1 tab PO DAILY 09/03/20 Atorvastatin Calcium 1 tab PO BEDTIME 09/03/20 Lisinopril [Zestril] 1 tab PO DAILY 09/03/20 Montelukast [Singulair*] 1 tab PO BEDTIME 09/03/20 Rivastigmine Patch [Exelon 4.6 mg Patch*] 1 patch TD DAILY 09/03/20 Apixaban [Eliquis] 5 mg PO BID #60 tablet 09/04/20 Levocetirizine Dihydrochloride [Xyzal] 5 mg PO BEDTIME 09/20/20 Sotalol HCl [Betapace*] 80 mg PO BID 6AM 6PM 09/20/20 Review of Systems 10-point ROS is otherwise unremarkable Cardiovascular: Palpitations <Vincenzo Brenner - Last Filed: 09/20/20 19:56> Physical Examination - Physical Exam General: Alert, In no apparent distress HEENT: Atraumatic, PERRLA, Mucous membr. moist/pink Neck: 2+ carotid pulse no bruit, No LAD Respiratory: Clear to auscultation bilaterally, Normal air movement Cardiovascular: Normal S1 S2, Irregular heart rate/rhythm (AFib rate around 125) Gastrointestinal: Normal bowel sounds, No tenderness Musculoskeletal: No tenderness Integumentary: No rashes Neurological: Normal speech, Normal strength at 5/5 x4 extr, Normal tone, Normal affect - Studies Laboratory Data (last 24 hrs) 09/20/20 15:16: PT 12.2, INR 1.06 09/20/20 15:16: WBC 7.00, Hgb 14.4, Hct 43.3, Plt Count 188 09/20/20 15:16: Sodium 138, Potassium 3.6, BUN 10, Creatinine 0.57, Glucose 92, Magnesium 2.5 H <Vincenzo Brenner - Last Filed: 09/20/20 19:56> Assessment and Plan - Plan Assessment Atrial fibrillation with rapid ventricular response on chronic anticoagulation therapy Hypertension Hyperlipidemia Plan Atrial fibrillation with rapid ventricular response on chronic anticoagulation therapy: Increase sotalol from 80 mg twice daily to 120 mg twice daily, monitor on telemetry. Additional medications for rate control as necessary. Patient without any chest pain, shortness of breath at this time, appears stable. Cardiology consult in place. Likely discharge tomorrow morning once rate is controlled or patient converted to sinus rhythm. Continue Eliquis. Hypertension: Obtain and continue home meds Hyperlipidemia: Obtain and continue home meds Discharge Plan: Home Plan to discharge in: 24 Hours - Advance Directives Does patient have a Living Will: Yes Does patient have a Durable POA for Healthcare: No - Code Status/Comfort Care Code Status Assessed: Yes (Full code) Critical Care: No Time Spent Managing Pts Care (In Minutes): 55 <Vincenzo Brenner - Last Filed: 09/20/20 19:56> - Plan Plan of care reviewed as noted above by Vincenzo Brenner, and I agree with the management plan as noted above. <Sagar Del Real - Last Filed: 09/30/20 20:37>
[2020-09-20] MEDS ORDERED: ACETAMINOPHEN 500 MG TAB PO PRN (21:51)
[2020-09-20] MEDS ORDERED: ONDANSETRON 4 MG/2 ML VIAL IV PRN (21:51)
[2020-09-20 22:14] VITALS: BMI 22.8
[2020-09-20] MEDS: NA CHLORIDE 0.9% 1,000 ML IV SCH (22:36)
[2020-09-20] MEDS: APIXABAN 5 MG TABLET PO SCH (22:36)
[2020-09-20] MEDS ORDERED: POTASSIUM CL SA 10 MEQ TAB PO ONE (23:00)
[2020-09-21] MEDS ORDERED: SOTALOL HCL 80 MG TAB PO SCH (06:00)
[2020-09-21 07:03] LABS: Absolute Lymphocytes (CBC) 1.1 K/uL (0.7-4.9); Basophils % 0.4 % (0-1.3); Hematocrit 38.2 % (36.0-45.0); Lymphocytes % 20.7 % (15.3-44.8); MPV 9.3 fL (7.6-11.3); RBC Red Blood Cell Count 4.13 M/uL (3.86-4.86)
[2020-09-21 07:22] LABS: BUN Blood Urea Nitrogen 10 mg/dL (7-18); Bicarbonate 29 mmol/L (21-32); Glucose Level 85 mg/dL (74-106); Magnesium 2.5 mg/dL (1.8-2.4); Potassium 3.5 mmol/L (3.5-5.1); Sodium Level 138 mmol/L (136-145)
[2020-09-21] MEDS ORDERED: SOTALOL HCL 80 MG TAB PO ONE (07:45)
[2020-09-21] MEDS ORDERED: POTASSIUM CL SA 10 MEQ TAB PO ONE (09:00)
[2020-09-21] MEDS ORDERED: lisinopriL 20 MG TAB PO SCH (09:00)
[2020-09-21] MEDS ORDERED: RIVASTIGMINE 4.6 MG/24 HR PATCH TD SCH (09:00)
[2020-09-21] MEDS ORDERED: AMLODIPINE 5 MG TAB PO SCH (09:00)
[2020-09-21] MEDS: APIXABAN 5 MG TABLET PO SCH (09:11)
[2020-09-21 11:09] VITALS: O2SAT 100
[2020-09-21] MEDS: NA CHLORIDE 0.9% 1,000 ML IV SCH ×2 (11:11→12:17)
[2020-09-21 12:06] VITALS: BP 137/67; TEMP 99.6
--- NOTE | 2020-09-21 20:47 | P.DS ---
Admission Date: 09/20/20 Discharge Date: 09/21/20 Disposition: ROUTINE DISCHARGE Discharge Condition: GOOD Reason for Admission: A fib RVR Consultations: Cardiology - Dr. Olvera Procedures: Problem List: Paroxysmal Atrial fibrillation with RVR on chronic anticoagulation therapy Hypertension Hyperlipidemia Brief History of Present Illness: 65yo F, PMH: Afib on anticoagulation, HTN, HLD, presented to ED For AFib with RVR noted at [employer] office. Patient felt dizzy/lightheaded at the time. No recent illness, but did receive Moderna vaccine earlier in the day. Recently diagnosed with Afib a few weeks ago. Currently taking sotalol 80 mg twice daily cardiology recommended evaluation in the emergency department. Cardiology was consulted in ED and recommend increasing sotalol dose to 120mg BID. An additional dose of 40 mg of sotalol administered in the emergency department. Labs unremarkable at this time, patient is chest pain-free doing well. Will admit under observation. Hospital Course: Patient had improvement of her heart rate and eventual cardioversion to normal sinus rhythm overnight. The following morning she was noted to have sinus bradycardia to the low 50s. She was given 80 mg of sotalol, and EKG one hour later showed sinus rhythm, HR: 62, QTC: 440. Cardiology recommended discharge h ome on 80 mg sotalol b.i.d. and f/u in their office later this week. Patient was instructed in the she can take one extra dose of 40 mg if she were to have rapid a fib again, followed by calling the cardiology office. Vital Signs/Physical Exam: Temp Pulse Resp BP Pulse Ox 99.6 F 65 16 137/67 98 09/21/20 12:00 09/21/20 12:00 09/21/20 12:00 09/21/20 12:00 09/21/20 12:00 General: Alert, In no apparent distress HEENT: Sclerae nonicteric Neck: Supple Respiratory: Clear to auscultation bilaterally, Normal air movement Cardiovascular: No edema, Regular rate/rhythm Gastrointestinal: Soft and benign, Non-distended, No tenderness Musculoskeletal: No erythema, No tenderness Integumentary: No rashes Neurological: Normal speech, Normal affect Laboratory Data at Discharge: WBC 5.50 K/uL (4.3-10.9) D 09/21/20 06:44 Hgb 13.1 g/dL (12.0-15.0) 09/21/20 06:44 Hct 38.2 % (36.0-45.0) 09/21/20 06:44 Plt Count 165 K/uL (152-406) 09/21/20 06:44 PT 12.2 SECONDS (9.5-12.5) 09/20/20 15:16 INR 1.06 09/20/20 15:16 Sodium 138 mmol/L (136-145) 09/21/20 06:44 Potassium 3.5 mmol/L (3.5-5.1) 09/21/20 06:44 BUN 10 mg/dL (7-18) 09/21/20 06:44 Creatinine 0.42 mg/dL (0.55-1.3) L 09/21/20 06:44 Glucose 85 mg/dL (74-106) 09/21/20 06:44 Magnesium 2.5 mg/dL (1.8-2.4) H 09/21/20 06:44 Home Medications: Amlodipine Besylate 1 tab PO DAILY 09/03/20 Atorvastatin Calcium 1 tab PO BEDTIME 09/03/20 Lisinopril [Zestril] 1 tab PO DAILY 09/03/20 Montelukast [Singulair*] 1 tab PO BEDTIME 09/03/20 Rivastigmine Patch [Exelon 4.6 mg Patch*] 1 patch TD DAILY 09/03/20 Apixaban [Eliquis] 5 mg PO BID #60 tablet 09/04/20 Levocetirizine Dihydrochloride [Xyzal] 5 mg PO BEDTIME 09/20/20 Sotalol HCl [Betapace*] 80 mg PO BID 6AM 6PM 09/20/20 Physician Discharge Instructions: You were found to have rapid Afib and this corrected back to sinus rhythm. You are discharged back home to continue your current regimen - 80mg sotalol twice a day. If you notice your heart rate is fast > 120s again, you can take 1/2 tablet (40mg) of sotalol and call the cardiology office. Follow up with Dr. Byers this coming week. Diet: AHA Activity: Ad crystal Followup: Oscar Byers MD [ACTIVE - CAN ADMIT] - Adithya Wiggins MD [Primary Care Provider] - Time spent managing pt's care (in minutes): 40
[2020-09-21] MEDS ORDERED: MONTELUKAST 10 MG TAB PO SCH (21:00)
[2020-09-21] MEDS ORDERED: ATORVASTATIN 40 MG TAB PO SCH (21:00)
[2020-09-21] MEDS ORDERED: LORATADINE 10 MG TAB PO SCH (21:00)
--- NOTE | 2020-09-24 18:45 | EKG ---
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
== END 2020-09-21 15:32 | disposition home or self-care (01) ==
LOC: ER 14:27 → ERHOLD 19:38 → 2ND 21:23
PROVIDERS: ADMIT Hospitalist; ATTEND Hospitalist
DX: I48.0 Paroxysmal atrial fibrillation (principal); I10 Essential (primary) hypertension; E78.5 Hyperlipidemia, unspecified; Z79.01 Long term (current) use of anticoagulants; Z20.822 Contact with and (suspected) exposure to COVID-19; R94.31 Abnormal electrocardiogram [ECG] [EKG]
CPT/HCPCS: 96361; 93005 ×2; 85025 ×2; 80048 ×2; 36415; 83735 ×2; 85610; 84484; 83880; 71045; 96374; 99285; U0003; J7040; J7030; G0378 ×2